=== PATIENT | male | born 1930 | race African-American/Black ===

== ENCOUNTER 2017-02-12 18:54 | Emergency (ER) | payer MEDICARE ==
[2017-02-12] MEDS ORDERED: Acetaminophen/Codeine 30-300mg Tablet ONE (21:31)
[2017-02-12] MEDS ORDERED: Methocarbamol 1 GM in Sodium Chloride 0.9% 250 ML 250 ML IVPB SCH (22:00)
[2017-02-12 22:01] LABS: #Basophils 0.1 thou/uL (0.0-0.2); #Eosinphils 0.2 thou/uL (0.0-0.7); #Lymphocytes 1.5 thou/uL (1.20-3.40); #Monocytes 0.4 thou/uL (0.11-0.59); #Neutrophils 3.3 thou/uL (1.40-6.50); %Basophils 0.9 % (0.0-1.0); %Eosinophils 4.6 % (0.0-10.0); %Monocytes 7.4 % (0.0-10.0); Hematocrit 36.2 % (42.0-52.0); Red Blood Cell (RBC) Count 3.58 mill/uL (4.70-6.10); White Blood Cell (WBC) Count 5.4 thou/uL (4.8-10.8)
[2017-02-12 22:21] LABS: ALT (SGPT) 19 U/L (8-55); AST (SGOT) 23 U/L (5-34); Alkaline Phosphatase 106 U/L (40-150); Anion Gap 18 mmol/L (10-20); BUN (Urea Nitrogen) 46 mg/dL (8.4-25.7); Bilirubin, Total 0.5 mg/dL (0.2-1.2); Calc. Creatinine Clearance 0 mL/min (70-130); Carbon Dioxide 27 mmol/L (23-31); Chloride 96 mmol/L (98-107); Estimated GFR-MDRD 7; Globulin 3.8 g/dL (2.4-3.5); Lipase 25 U/L (8-78); Protein, Total 7.5 g/dL (5.8-8.1)
== END 2017-02-12 23:08 | disposition home or self-care (01) ==
LOC: ERS 18:54
DX: M54.41 Lumbago with sciatica, right side (principal); M62.830 Muscle spasm of back; E78.5 Hyperlipidemia, unspecified; I12.9 Hypertensive chronic kidney disease with stage 1 through stage 4 chronic kidney disease, or unspecified chronic kidney disease; E11.22 Type 2 diabetes mellitus with diabetic chronic kidney disease; N18.9 Chronic kidney disease, unspecified; F17.220 Nicotine dependence, chewing tobacco, uncomplicated; Z79.82 Long term (current) use of aspirin; Z79.899 Other long term (current) drug therapy
CPT/HCPCS: 80053; 83690; 85025; 96365; J2800; J7050

== ENCOUNTER 2017-02-14 21:01 | Emergency (ER) | payer MEDICARE ==
[2017-02-14 22:51] LABS: #Basophils 0.1 thou/uL (0.0-0.2); #Eosinphils 0.2 thou/uL (0.0-0.7); #Lymphocytes 1.4 thou/uL (1.20-3.40); #Monocytes 0.5 thou/uL (0.11-0.59); #Neutrophils 3.6 thou/uL (1.40-6.50); %Eosinophils 3.9 % (0.0-10.0); %Lymphocytes 24.3 % (21.0-51.0); %Monocytes 8.8 % (0.0-10.0); Hematocrit 34.3 % (42.0-52.0); Mean Platelet Volume 7.1 fL (7.4-10.4); Red Blood Cell (RBC) Count 3.42 mill/uL (4.70-6.10); White Blood Cell (WBC) Count 5.9 thou/uL (4.8-10.8)
[2017-02-14 23:09] LABS: Lactic Acid - Sepsis 0.6 mmol/L (0.5-2.2)
[2017-02-14 23:13] LABS: ALT (SGPT) 16 U/L (8-55); AST (SGOT) 20 U/L (5-34); Alkaline Phosphatase 105 U/L (40-150); Anion Gap 16 mmol/L (10-20); BUN (Urea Nitrogen) 43 mg/dL (8.4-25.7); Bilirubin, Total 0.3 mg/dL (0.2-1.2); Calc. Creatinine Clearance 0 mL/min (70-130); Carbon Dioxide 29 mmol/L (23-31); Chloride 98 mmol/L (98-107); Estimated GFR-MDRD 7; Globulin 3.5 g/dL (2.4-3.5); Lipase 28 U/L (8-78)
[2017-02-14] MEDS ORDERED: Ondansetron HCl/PF 4 MG/2 ML Vial ONE (23:13)
--- NOTE | 2017-02-14 23:21 | CT ---
CT ABDOMEN AND PELVIS WITHOUT CONTRAST: 02/14/17 HISTORY: 86-year-old male with right sided lower back pain radiating to the right lower portion of the abdome n. Patient is on peritoneal dialysis. FINDINGS: Comparison is made with the exam of 09/24/14. Absence of oral and IV contrast reduces the sensitivity of the exam particularly for evaluation of t he solid organs and bowel. There are mild dependent changes in the lung bases. There are postop changes of right nephrectomy an d appendectomy. A peritoneal dialysis catheter is present. There is a small amount of free fluid in the pelvis. No calcified gallstones are seen. No free intraperitoneal air is identified. There is a tiny amount of air in the anterior abdominal wall to the right of midline at the level of the umbilicus. No calc treasure is seen in the left kidney, left ureter or the urinary bladder. No left sided hydroureteronephro sis is identified. The prostate is enlarged. There are cysts in the left kidney. There is sigmoid diverticulosis. There are vascular calcifications without evidence of aneurysmal d ilatation of the abdominal aorta. Degenerative changes are present in the spine, SI joints and hip j oints. 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 IMPRESSION: 1. Status post nephrectomy. 2. No evidence of urinary tract calculi or obstruction. 3. Left renal cyst. 4. Prostatic enlargement. 5. Small amount of free fluid in the pelvis likely dialysate. 6. Sigmoid diverticulosis. POS: [facility]
== END 2017-02-15 00:33 | disposition home or self-care (01) ==
LOC: ERS 21:01
DX: M54.5 Low back pain (principal); E78.5 Hyperlipidemia, unspecified; I10 Essential (primary) hypertension; F17.220 Nicotine dependence, chewing tobacco, uncomplicated; Z79.82 Long term (current) use of aspirin; Z79.891 Long term (current) use of opiate analgesic; Z79.899 Other long term (current) drug therapy
CPT/HCPCS: 36415; 74176; 80053; 83605; 83690; 85025; 96361; 96374; 96375; J2270; J2405

== ENCOUNTER 2017-09-22 15:55 | Emergency (ER) | payer MEDICARE ==
[2017-09-22 16:34] LABS: #Eosinphils 0.2 thou/uL (0.0-0.7); #Lymphocytes 1.7 thou/uL (1.20-3.40); #Monocytes 0.7 thou/uL (0.11-0.59); #Neutrophils 3.1 thou/uL (1.40-6.50); %Basophils 0.3 % (0.0-1.0); %Lymphocytes 29.8 % (21.0-51.0); %Monocytes 12.4 % (0.0-10.0); %Neutrophils 53.6 % (42.0-75.0); Hemoglobin 10.7 g/dL (14.0-18.0); Mean Corpuscular HGB CONC 33.3 g/dL (32.0-36.0); Mean Corpuscular Hemoglobin 33.1 pg (27.0-31.0); Mean Corpuscular Volume 99.5 fl (80.0-94.0); Mean Platelet Volume 6.5 fL (7.4-10.4); Platelet Count 187 thou/uL (130-400); RBC Distribution Width 13.3 % (11.5-14.5); Red Blood Cell (RBC) Count 3.22 mill/uL (4.70-6.10); White Blood Cell (WBC) Count 5.8 thou/uL (4.8-10.8)
[2017-09-22 16:53] LABS: ALT (SGPT) 16 U/L (8-55); AST (SGOT) 21 U/L (5-34); Albumin 3.3 g/dL (3.4-4.8); Alkaline Phosphatase 109 U/L (40-150); Anion Gap 11 mmol/L (10-20); BUN (Urea Nitrogen) 26 mg/dL (8.4-25.7); Bilirubin, Total 0.3 mg/dL (0.2-1.2); CK (CPK) 79 U/L (30-200); Calc. Creatinine Clearance 0 mL/min (70-130); Calcium 8.8 mg/dL (7.8-10.44); Carbon Dioxide 31 mmol/L (23-31); Chloride 100 mmol/L (98-107); Estimated GFR-MDRD 7; Glucose 86 mg/dL (83-110); Protein, Total 6.3 g/dL (5.8-8.1); Sodium 138 mmol/L (136-145)
[2017-09-22 16:58] LABS: CKMB 1.2 ng/mL (0-6.6); Troponin I 0.123 ng/mL (< 0.028)
--- NOTE | 2017-09-22 17:40 | RAD ---
HISTORY: Dizziness with chest pain. AP VIEW CHEST: 09/22/17 COMPARISON: Comparison made to previous exam from 12/24/16. AP view chest demonstrates ectasia and calcification of the aorta. Mild cardiomegaly is seen. No jackson dence of effusions, pneumonia or pneumothorax seen. IMPRESSION: Unremarkable AP view chest. POS: [facility]
[2017-09-22 19:58] LABS: Troponin I 0.144 ng/mL (< 0.028)
== END 2017-09-22 20:26 | disposition home or self-care (01) ==
LOC: ERS 15:55
DX: R51 Headache (principal); R74.8 Abnormal levels of other serum enzymes; E78.5 Hyperlipidemia, unspecified; I12.0 Hypertensive chronic kidney disease with stage 5 chronic kidney disease or end stage renal disease; N18.6 End stage renal disease; Z99.2 Dependence on renal dialysis; F17.220 Nicotine dependence, chewing tobacco, uncomplicated; Z79.82 Long term (current) use of aspirin; Z79.899 Other long term (current) drug therapy; Z85.528 Personal history of other malignant neoplasm of kidney
CPT/HCPCS: 36415; 36416; 71045; 80053; 82550; 82553; 84484; 85025; 93005

== ENCOUNTER 2017-10-31 23:55 | Inpatient (IN) | payer MEDICARE, MEDICAID ==
[2017-11-01 01:14] LABS: #Eosinphils 0.3 thou/uL (0.0-0.7); #Lymphocytes 1.2 thou/uL (1.20-3.40); #Monocytes 0.6 thou/uL (0.11-0.59); #Neutrophils 2.5 thou/uL (1.40-6.50); %Basophils 0.5 % (0.0-1.0); %Eosinophils 6.2 % (0.0-10.0); %Lymphocytes 26.1 % (21.0-51.0); %Monocytes 12.2 % (0.0-10.0); Hemoglobin 9.7 g/dL (14.0-18.0); Mean Corpuscular HGB CONC 34.3 g/dL (32.0-36.0); Mean Corpuscular Volume 96.3 fL (78.0-98.0); Mean Platelet Volume 6.8 fL (7.4-10.4); Platelet Count 177 thou/uL (130-400); RBC Distribution Width 12.8 % (11.5-14.5); Red Blood Cell (RBC) Count 2.94 mill/uL (4.70-6.10); White Blood Cell (WBC) Count 4.6 thou/uL (4.8-10.8)
[2017-11-01] MEDS ORDERED: Nitroglycerin 2% Ointment 1 INCH/1 GM Packet ONE (01:26)
[2017-11-01 01:40] LABS: CKMB 1.7 ng/mL (0-6.6); Troponin I 0.134 ng/mL (< 0.028)
[2017-11-01 01:48] LABS: ALT (SGPT) 16 U/L (8-55); AST (SGOT) 22 U/L (5-34); Albumin 3.3 g/dL (3.4-4.8); Alkaline Phosphatase 97 U/L (40-150); Anion Gap 14 mmol/L (10-20); BUN (Urea Nitrogen) 25 mg/dL (8.4-25.7); Bilirubin, Total 0.3 mg/dL (0.2-1.2); CK (CPK) 111 U/L (30-200); Calc. Creatinine Clearance 0 mL/min (70-130); Calcium 8.6 mg/dL (7.8-10.44); Carbon Dioxide 28 mmol/L (23-31); Chloride 97 mmol/L (98-107); Estimated GFR-MDRD 8; Globulin 3.1 g/dL (2.4-3.5); Glucose 90 mg/dL (83-110); Lipase 24 U/L (8-78); Potassium 3.8 mmol/L (3.5-5.1); Protein, Total 6.4 g/dL (5.8-8.1); Sodium 135 mmol/L (136-145)
[2017-11-01] MEDS ORDERED: Ondansetron ODT 4 MG TAB SL PRN (03:42)
[2017-11-01] MEDS ORDERED: Ondansetron HCl/PF 4 MG/2 ML Vial IVP PRN (03:42)
[2017-11-01 04:23] VITALS: BMI 21.0
[2017-11-01] MEDS ORDERED: rOPINIRole HCl 0.5 MG TAB PO SCH (07:00)
[2017-11-01] MEDS ORDERED: Aspirin 325 MG TAB PO SCH (08:00)
--- NOTE | 2017-11-01 09:09 | RAD ---
SINGLE VIEW OF THE CHEST: COMPARISON: 09/22/17. HISTORY: Chest pain that started an hour prior to arrival. FINDINGS: A single view of the chest shows a normal-size cardiomediastinal silhouette with atherosclerotic calc ifications in the aorta. Thee is no evidence of consolidation, mass, or pleural effusion. Degenerat madeline changes are seen in the spine. IMPRESSION: No evidence of acute cardiopulmonary disease. POS: [facility]
[2017-11-01] MEDS ORDERED: Epoetin (ESRD) 20,000 UNITS/ML SC SCH (10:30)
[2017-11-01 11:52] LABS: Troponin I 0.139 ng/mL (< 0.028)
--- NOTE | 2017-11-01 14:08 | CON ---
DATE OF CONSULTATION: 11/01/2017 REASON FOR CONSULTATION: Chest pain. PRIMARY MEDICARE SALES REPRESENTATIVE: Dr. Rodríguez. HISTORY OF PRESENT ILLNESS: Mr. Soto is an 87-year-old gentleman who is on peritoneal dialysis. H is main complaint is chest pain. History is a very vague. The patient is not able to describe the d uration. He does state the pain was worse with deep breath. He cannot tell me whether it is sharp o r dull. No associated symptoms present. His troponin was mildly elevated. When reviewing his previous hospitalizations, his troponin is at b aseline. He did have an angio performed less than 1 year ago with minimal coronary disease present. PAST MEDICAL HISTORY: End-stage renal disease, hypertension, mild CAD, DJD, hypertension, chronic an emia, renal cell cancer. PAST SURGICAL HISTORY: Appendectomy, nephrectomy. HOME MEDICATIONS: Include aspirin, Lipitor, clonidine, ranitidine, nifedipine, hydralazine, Requip, tramadol, Flomax, Sensipar. ALLERGIES: None. REVIEW OF SYSTEMS: Ten-point review of systems is reviewed and is as above, otherwise negative. PHYSICAL EXAMINATION: GENERAL: The patient is a pleasant male who is in no acute distress. The patient appears his stated age. VITAL SIGNS: Blood pressure 134/80, pulse 49, temperature 97.2. NEUROLOGIC: The patient is alert and oriented times 3 with no focal neurologic deficits. HEENT: Sclerae without icterus. Mouth has moist mucous membranes with normal pallor. NECK: No JVD. Carotid upstroke brisk. No bruits bilaterally. LUNGS: Clear to auscultation with unlabored respirations. BACK: No scoliosis or kyphosis. CARDIAC: Regular rate and rhythm with normal S1 and S2. No S3 or S4 noted. No significant rubs, mu rmurs, thrills, or gallops noted throughout the precordium. PMI is not displaced. There is no khang ternal heave. ABDOMEN: Soft, nontender, nondistended. No peritoneal signs present. No hepatosplenomegaly. No ab normal striae. EXTREMITIES: 2+ femoral and 2+ dorsalis pedis pulses. No cyanosis, clubbing, or edema. SKIN: No gross abnormalities. PERTINENT LABS: Sodium 135, potassium 3.8, chloride 97, creatinine 8.1. Troponin 0.134. IMPRESSION: 1. Atypical chest pain. 2. End-stage renal disease. 3. Elevated troponin. RECOMMENDATIONS: Mr. Soto's history is very difficult and vague. His symptoms though appear to be worse with deep breath. Given that he had an angiogram performed less than 1 year ago, would treat medically. He does not appear to be in any distress currently. The reason he was admitted was for a n elevated troponin that appears chronic. He is also complaining of hip pain. I did state that his primary team would arrange for management and treatment. Otherwise, I have no recommendations.
--- NOTE | 2017-11-01 15:10 | CON ---
DATE OF CONSULTATION: 11/01/2017 HISTORY OF PRESENT ILLNESS: Mr. Soto is an 87-year-old black male with ESRD, currently on maintena dee nocturnal peritoneal dialysis. He was admitted for chest pain. He is now here for further rule out. We are being consulted for maintenance peritoneal dialysis. This morning, his chest pain is im proved. REVIEW OF SYSTEMS: Complaining about the food, but no chest pain or shortness of breath, no nausea, no vomiting, no abdominal pain, no gross hematuria. No discoloration of the PD fluid, no nausea, no vomiting, no headache, no syncopal episode. Positive for increased forgetfulness. No diarrhea, no d ysuria, occasional joint pains, occasional back pain. No new skin rash. No sore throat. No fever o r chills. MEDICATIONS: The patient is currently aspirin 325 mg once a day, Zofran 4 mg sublingual q.6 p.r.n. HOME MEDICATIONS: Includes the following, calcium acetate 660 mg 1 tab t.i.d. with meals, aspirin 81 mg tab daily, ropinirole 0.5 mg at bedtime, KCl 20 mEq once a day, tamsulosin 0.4 mg once a day, fernanda rvastatin 20 mg tab at bedtime, vitamin D3 2000 international units every day, Sensipar 30 mg tab onc e a day, calcitriol 0.25 mcg every day, tramadol 50 mg p.r.n. PAST MEDICAL HISTORY: 1. Renal cancer - currently in remission. 2. End-stage renal disease - currently on nocturnal peritoneal dialysis. 3. Gout. 4. Hyperlipidemia. 5. Longstanding hypertension. PAST SURGICAL HISTORY: 1. Status post right nephrectomy for renal cancer. 2. Status post appendectomy. 3. Status post right leg surgery. 4. Status post PD catheter placement. 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 He is assisted by his daughter regarding the peritoneal dialysis. He dipped snuff for 50 year s. No drug abuse. Currently, no alcohol. Status post blood transfusion. ALLERGIES: None. TRAUMA: Status post right leg fracture. IMMUNIZATIONS: Up to date. HOSPITALIZATIONS: Please see past medical history. FAMILY HISTORY: No family history of ESRD. PHYSICAL EXAMINATION: VITAL SIGNS: Blood pressure is noted at 134/80, heart rate 49, respiratory rate 18, temperature 97.2 , pulse ox 98%. GENERAL: Awake, alert, comfortable, not in distress. SKIN: Adequate turgor. HEENT: Slightly pale conjunctivae, anicteric sclerae. NECK: No neck mass, no carotid bruits, no JVD. CHEST: No deformities. LUNGS: Clear breath sounds, no wheezing, no crackles. HEART: Normal sinus rhythm. No murmur, no gallops or rubs. ABDOMEN: Globular, soft, nontender, no masses. Positive for PD catheter. EXTREMITIES: No edema, no deformities. NEUROLOGIC: Awake. Mild tremors but no overt asterixis. Oriented to 3 spheres. Decreased memory. LABORATORY: Of 11/01/2017, white count 4.6, hemoglobin 9.7. Sodium 135, potassium 3.8, chloride 97, carbon dioxide 28, BUN 25, creatinine 8.14, glucose 90, AST 22, ALT 16, albumin 3.3, troponin I 0.12 . Chest x-ray shows no CHF, no infiltrates. ASSESSMENT AND PLAN: 1. Chronic anemia - Epogen 7500 units subcutaneously every week. 2. End-stage renal disease, stable. We will continue current CCPD regimen. We will schedule for 10 -hour peritoneal dialysis using 2 liters solutions alternating 1.5 and 2.5 PD solution. Dual time wi ll be about 1 hour and 13 minutes. 3. Chest pain, resolved. Rule out for myocardial infarction. 4. Hypoalbuminemia. Nepro 1 can b.i.d. Recheck base met and CBC in a.m.
[2017-11-01] MEDS ORDERED: hydrALAZINE 10 MG TAB PO PRN (16:41)
[2017-11-01] MEDS: Cinacalcet HCl 30 MG TAB PO SCH (17:52)
[2017-11-01] MEDS: Calcium Acetate 667 MG CAP PO SCH (17:52)
[2017-11-01] MEDS: rOPINIRole HCl 0.5 MG TAB PO SCH (21:12)
[2017-11-01] MEDS: Tamsulosin HCl 0.4 MG CAP PO SCH (21:12)
[2017-11-01] MEDS: Heparin 5,000 UNITS/ML VIAL SC SCH (21:12)
[2017-11-01] MEDS: Atorvastatin Calcium 20 MG TAB PO SCH (21:12)
[2017-11-02 04:17] LABS: #Eosinphils 0.3 thou/uL (0.0-0.7); #Lymphocytes 1.4 thou/uL (1.20-3.40); #Monocytes 0.6 thou/uL (0.11-0.59); #Neutrophils 2.5 thou/uL (1.40-6.50); %Basophils 0.3 % (0.0-1.0); %Eosinophils 5.7 % (0.0-10.0); %Lymphocytes 29.2 % (21.0-51.0); %Monocytes 12.9 % (0.0-10.0); %Neutrophils 51.9 % (42.0-75.0); Hemoglobin 9.6 g/dL (14.0-18.0); Mean Corpuscular Hemoglobin 33.1 pg (27.0-31.0); Mean Corpuscular Volume 97.3 fL (78.0-98.0); Platelet Count 170 thou/uL (130-400); RBC Distribution Width 13.1 % (11.5-14.5); White Blood Cell (WBC) Count 4.7 thou/uL (4.8-10.8)
[2017-11-02 04:34] LABS: Anion Gap 15 mmol/L (10-20); BUN (Urea Nitrogen) 30 mg/dL (8.4-25.7); Calc. Creatinine Clearance 7 mL/min (70-130); Calcium 8.4 mg/dL (7.8-10.44); Carbon Dioxide 27 mmol/L (23-31); Chloride 99 mmol/L (98-107); Estimated GFR-MDRD 7; Glucose 118 mg/dL (83-110); Potassium 3.5 mmol/L (3.5-5.1); Sodium 137 mmol/L (136-145)
--- NOTE | 2017-11-02 08:27 | HP ---
DATE OF ADMISSION: 11/01/2017 REASON FOR ADMISSION AND CHIEF COMPLAINT: Chest pain. HISTORY OF PRESENT ILLNESS: Mr. Soto is an 87-year-old -[place] male with past medical history of end-stage renal disease and hypertension, came in with chest pain and shortness of breath which started last night. The pain is in the retrosternal area, pressure-like, not sharp, nonradiating, not associated with any nausea or vomiting, associated with some shortness of breath. The patient came to emergency room for evaluation. By the time he came , the chest pain got resolved. In the ER, the patient was evaluated and found to have normal electrocardiogram and mildly elevated troponin I. In view of risk factors, the patient is being admitted to rule out myocardial infarction. The patient had a coronary angiogram done more than a year ago and it showed normal coronary arteries or minimal coronary artery disease. PAST MEDICAL HISTORY: 1. Hypertension. 2. End-stage renal disease, on peritoneal dialysis. 3. Hyperlipidemia. 4. Degenerative joint disease. 5. Restless leg syndrome. 6. Hypertensive heart disease. 7. Chronic anemia. 8. History of renal cell cancer. PAST SURGICAL HISTORY: 1. Status post appendectomy. 2. Status post nephrectomy for renal cell cancer. 3. Status post orthopedic surgery, right leg. CURRENT MEDICATIONS: The patient is on aspirin 81 mg daily; Lipitor 20 mg daily ; calcitriol 0.25 mcg daily on Thursday, Thursday, Thursday; vitamin D 2000 units daily; Sensipar 30 mg t.i.d.; hydralazine p.r.n.; nifedipine 90 mg daily, KCl 20 mEq daily, Requip 0.5 mg at bedtime, Flomax 0.4 at bedtime, tramadol 50 b.i.d. p.r.n. ALLERGIES: No known drug allergies. FAMILY HISTORY: Nothing of interest. SOCIAL HISTORY: The patient lives with family. No history of smoking. No history of alcohol intake. REVIEW OF SYSTEMS: Cardiovascular: Has chest pain with shortness of breath. Respiratory: No cough, fever. Gastrointestinal: No nausea, vomiting, or abdominal pain. Genitourinary: No dysuria or hematuria. Central nervous system: No headache, no dizziness. PHYSICAL EXAMINATION: GENERAL: The patient is alert, awake, oriented x3. VITAL SIGNS: Temperature 98, pulse 60, respirations 20, blood pressure 160/80. HEENT: Head is normocephalic, atraumatic. Pupils equal and reactive. Nasopharynx is pale and dry. Hard and soft palate, no lesions seen. SKIN: Skin turgor decreased. NECK: Supple. No JVD. LUNGS: Bilateral air entry present. No rales, no rhonchi. HEART: S1, S2 regular. ABDOMEN: Soft. No distention, no tenderness. Normal bowel sounds present. RECTAL: Deferred. CENTRAL NERVOUS SYSTEM: No focal deficit. EXTREMITIES: No edema. LABORATORY AND X-RAY FINDINGS: CBC shows WBC 4.6, hemoglobin 9.7, hematocrit 28 , platelets 177. Metabolic panel: Sodium 135, potassium 3.8, chloride 97, CO2 of 28, urea nitrogen 25, creatinine 8.1, glucose 90. CK-MB 1.1, troponin I 0.0134. Chest x-ray, no evidence of cardiopulmonary disease. EKG shows normal sinus rhythm; no acute ST-T wave changes seen; right bundle branch block, old. ASSESSMENT: 1. Chest pain, rule out myocardial infarction. 2. Hypertension. 3. End-stage renal disease, on peritoneal dialysis. 4. Hypertensive heart disease. 5. Restless leg syndrome. 6. Hyperlipidemia. 7. Degenerative joint disease. PLAN: 1. Vital signs q.4 hours. 2. Activity: As tolerated. 3. Allergies: NKDA. 4. Hep-Lock. 5. Diet: Renal and cardiac. 6. Troponin I q.8 hours x2. 7. Continue home medications. 8. Nephro consult. 9. CBC and base met in the morning. 10. Heparin subcu b.i.d. 11. Cardiology consult. ROBYND
--- NOTE | 2017-11-02 08:58 | PRG ---
DATE OF SERVICE: 11/02/2017 SUBJECTIVE: Mr. Soto is an 87-year-old black male with ESRD - on peritoneal dialysis and admitted for chest pain. He has been evaluated by Cardiology. The recommendation is medical treatment. No o ther complaints today. Denies any chest pain, shortness of breath. OBJECTIVE: VITAL SIGNS: Blood pressure is 134/67, heart rate 73, respiratory rate 18, temperature 99, pulse oxi metry 99% on room air. GENERAL: Awake, comfortable, not in distress. SKIN: Adequate turgor. HEENT: Slightly pale conjunctivae, anicteric sclerae. NECK: No neck mass, no carotid bruits, no JVD. CHEST: No deformities. LUNGS: Clear breath sounds. HEART: Normal sinus rhythm. No murmur, no gallops, no rubs. ABDOMEN: Globular, soft, nontender, no masses. EXTREMITIES: No edema, no deformities. Please note he has a PD catheter. MEDICATIONS: 11/02/2017 - Reviewed. LABORATORY: 11/02/2017 - White count 4.7, hemoglobin 9.6. Sodium 137, potassium 3.5, chloride 99, c arbon dioxide 27, BUN 30, creatinine 8.53, glucose 118, calcium 8.4. ASSESSMENT AND PLAN: 1. Chest pain, resolved. Recommendation by Cardiology is medical treatment. 2. End-stage renal disease, stable. Tolerating current peritoneal dialysis. He underwent peritonea l dialysis last night without any difficulty. Continue current CCPD regimen. Continues nocturnal pe ritoneal dialysis. Agree with current management. From a renal point of view, the patient can be di scharged. 3. Anemia, on weekly Epogen.
[2017-11-02] MEDS: Calcium Acetate 667 MG CAP PO SCH ×4 (09:16→17:32)
[2017-11-02] MEDS: Potassium Chloride 20 MEQ TAB PO SCH (09:17)
[2017-11-02] MEDS: NIFEdipine XL 90 MG TAB PO SCH (09:17)
[2017-11-02] MEDS: Aspirin 81 mg Enteric Coated Tablet PO SCH (09:17)
[2017-11-02] MEDS: Calcitriol 0.25 MCG CAP PO SCH (09:17)
[2017-11-02] MEDS: Cinacalcet HCl 30 MG TAB PO SCH ×4 (09:17→17:32)
[2017-11-02] MEDS: Heparin 5,000 UNITS/ML VIAL SC SCH ×2 (09:20→21:24)
--- NOTE | 2017-11-02 09:28 | PRG ---
DATE OF SERVICE: 11/02/2017 Mr. Soto is doing well today, no complaints. No significant chest pain or shortness of breath. PHYSICAL EXAMINATION: VITAL SIGNS: Blood pressure 134/67, pulse 70. LUNGS: Clear. CARDIAC: Normal S1, normal S2. ABDOMEN: Soft, nontender. EXTREMITIES: There is no edema. Reviewing the records, he does have some periods of 2:1 AV block early in the morning at 5:50 a.m., s omewhat looks like nonconducted PACs, some second degree type 1. He also has a bifascicular block on EKG. ASSESSMENT: 1. History of left ventricular hypertrophy. 2. No significant coronary disease. 3. Bifascicular block. 4. AV block as outlined above. PLAN: We will ask route delivery manager to see him today. At this point, it does not appear he needs a pacemaker, but I like the route delivery manager, Dr. Paz, to see the patient to make sure he does no t think any of this is second degree type 2 block.
--- NOTE | 2017-11-02 14:16 | CON ---
DATE OF CONSULTATION: 11/02/2017 REFERRING PHYSICIAN: Dr. Kia Lawson REASON FOR CONSULTATION: AV block as well as bifascicular block. HISTORY OF PRESENT ILLNESS: Mr. Soto is an 87-year-old male with past medical his tory including end-stage renal disease on dialysis, as well as hypertension and anemia of chronic dis ease. He presented to the emergency room on 11/01/2017 reporting chest pain and shortness of breath which had initiated the night before. He underwent an ischemic workup and was admitted. It was dete rmined not to be ischemic in origin. That being said, on telemetry, he has had some periods of AV bl ock which was initially labeled a second degree type 1 and some non-conducted PACs. He also has a hi story of a bifascicular block. We have been asked to evaluate by Cardiology for any additional AV bl ock or conduction problems as well as assess for potential need for a pacemaker. Today Mr. Soto is feeling well. He is eager to get home. He denies any heart racing, palpitation, chest pain, pressure, syncope, near syncope, stroke or stroke-like symptoms. He denies any shortnes s of breath. He has not been up ambulating in the room. He denies any nausea, vomiting, diarrhea, b lood in stool, blood in urine. He has not had any dizziness or passing out episodes. REVIEW OF SYSTEMS: Twelve point review of systems was conducted and is negative except that listed a michaelle in the HPI. PAST MEDICAL HISTORY: 1. Hypertension. 2. End-stage renal disease on peritoneal dialysis. 3. Hyperlipidemia. 4. Degenerative joint disease. 5. Restless leg syndrome. 6. Hypertensive heart disease. 7. Anemia of chronic disease. 8. History of renal cell cancer. PAST SURGICAL HISTORY: 1. Appendectomy. 2. Nephrectomy for renal cell cancer. 3. Orthopedic surgery on his right leg. HOME MEDICATIONS: Tramadol 50 mg p.o. b.i.d. as needed, Requip 0.5 mg p.o. at bedtime, Apresoline 10 mg p.o. p.r.n. high blood pressure, Flomax 0.4 mg p.o. at bedtime, K-Dur 20 mEq p.o. daily, nifedipi ne ER 90 mg p.o. daily, Sensipar 30 mg p.o. t.i.d. with meals, vitamin D 2000 units p.o. daily, calci um acetate 667 mg p.o. t.i.d. with meals, Rocaltrol 0.25 mcg p.o. Thursday, Thursday, Thursday, atorvas tatin 20 mg p.o. q.p.m., and Ecotrin 81 mg daily. ALLERGIES: No known allergies. FAMILY HISTORY: Negative for sudden cardiac and early onset coronary artery disease to the bes t of his knowledge. SOCIAL HISTORY: Lives with family. Multiple children. No history of smoking. No history of alcoho l or drug abuse. PHYSICAL EXAMINATION: VITAL SIGNS: Most recent vital signs are 98.7 degrees Fahrenheit, pulse 89, respirations 18, oxygen saturation is 98% on room air, blood pressure is 134/67. GENERAL: This is slightly underweight elderly male in no apparent distress. He is alert and oriente d. He does seem somewhat forgetful and is a fairly poor historian. HEENT: He is normocephalic, atraumatic, normocephalic. Pupils are equal, round, and reactive accomm odating to light. The sclerae are anicteric. His oral mucosa is moist and pink with adequate dentit ion. NECK: Supple without jugular venous distention. LUNGS: His lungs are clear to auscultation bilaterally without wheezes, crackles or rhonchi. Respir ations are even and unlabored with good bilateral excursion. HEART: His heart rate is regularly irregular with a crisp S1, S2 and the PMI is nondisplaced. ABDOMEN: Soft, nontender without palpable masses and positive bowel sounds noted throughout. Hepato jugular reflex is negative. NEUROLOGIC: Grossly intact and nonfocal. EXTREMITIES: Warm and dry to touch without clubbing, cyanosis or edema. Gait was not assessed. DATABASE: WBC 4.7, hemoglobin 9.6, hematocrit 28.2, platelet count is 170. Chemistry: Sodium 137, potassium 3.5, BUN is 30, creatinine is 8.53. Serial troponins were conducted and peaked at 0.139, d eemed indeterminate. Review of telemetry and EKGs reveals largely sinus rhythm with episodes of a second-degree type 2 AV block, also trifascicular block. No pauses. 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 3. End-stage renal disease on peritoneal dialysis. RECOMMENDATIONS: A long conversation was had with Mr. Soto as well as his daughter, Shannan, who w as on the phone during the consult. Given his Mobitz type 2 block, as well as his trifascicular bloc k, at this point, the recommendation is to go forward with a dual-chamber pacemaker. Ideally, this w ould be done during this hospitalization to prevent any syncopal episodes or further events from his advanced conduction disease. Risks with pacemaker insertion include pain, swelling and infection, as well as damage to the lung and heart. While these risks are fairly remote, they are real risks and were mentioned today. All questions were answered. At this point, the family would like to discuss amongst themselves and with Mr. Soto and give their decision once they have all spoken together. I f they decide to proceed with a pacemaker, we will keep him n.p.o. tomorrow and proceed in the aftern oon approximately at 1:00 p.m. Alternatively, they have asked if this can be done as an outpatient. Our recommendation is to do this before discharge; however, if they prefer we can do a followup appo intment and make outpatient arrangements as well. Thank you for allowing us to participate in the care of this patient.
[2017-11-02] MEDS: traMADol HCl 50 MG TAB PO PRN (14:43)
[2017-11-02] MEDS: Atorvastatin Calcium 20 MG TAB PO SCH (21:24)
[2017-11-02] MEDS: rOPINIRole HCl 0.5 MG TAB PO SCH (21:24)
[2017-11-02] MEDS: Tamsulosin HCl 0.4 MG CAP PO SCH (21:24)
--- NOTE | 2017-11-03 08:56 | PRG ---
DATE OF SERVICE: 11/03/2017 SUBJECTIVE: Mr. Soto is an 87-year-old black male with ESRD and currently on peritoneal dialysis a nd was evaluated by Cardiology due to his second degree AV block. He was also found to have a trifas cicular block. Dr. Paz from the EP Service has reevaluated the patient and his recommendation is fo r the patient to undergo a pacemaker placement. The patient has no new complaints today. He denies any chest pain, shortness of breath. He underwen t peritoneal dialysis without any difficulty last night. The only issue is the patient complained be ing full on 2 liter fill volume. For that reason, I changed the PD field volume to 1.5 liters. He h as no other complaints this morning. The patient denies any chest pain, shortness of breath. OBJECTIVE: VITAL SIGNS: Blood pressure 147/70, heart rate 74, respiratory rate 16, temperature 98.1, pulse ox i s 100%. GENERAL: Awake, alert, supine, comfortable, not in distress. SKIN: Adequate turgor. HEENT: Slightly pale conjunctivae, anicteric sclerae. NECK: No neck mass, no carotid bruits. No JVD. CHEST: No deformities. LUNGS: Clear breath sounds, no wheezing, no crackles. HEART: Normal sinus rhythm. No murmur, no gallops or rubs. ABDOMEN: Globular, soft, nontender, no masses. Positive for PD catheter. EXTREMITIES: No edema, no deformities. MEDICATIONS: 11/03/2017 - Reviewed. LABORATORY: 11/02/2017 - White count 4.7, hemoglobin 9.6. 11/02/2017 - Sodium 137, potassium 3.5, chloride 99, carbon dioxide 27, BUN 30, creatinine 8.53, gluc ose 118, calcium 8.4. Troponin I 0.139. ASSESSMENT AND PLAN: 1. End-stage renal disease, stable. We will continue current CCPD regimen. Fill volume has been de creased from 2 liters to 1.5 liters due to complaints of abdominal fullness. No other changes to be made today. 2. 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 Recommendation is t o place a pacemaker. The patient and the family has agreed with this. 3. Anemia, continuing weekly Epogen. Overall, I agree with current management. We will recheck a base met and CBC in a.m.
[2017-11-03] MEDS: Calcium Acetate 667 MG CAP PO SCH ×3 (09:46→17:11)
[2017-11-03] MEDS: Aspirin 81 mg Enteric Coated Tablet PO SCH (09:47)
[2017-11-03] MEDS: Heparin 5,000 UNITS/ML VIAL SC SCH ×3 (09:47→20:24)
[2017-11-03] MEDS: Cinacalcet HCl 30 MG TAB PO SCH ×3 (09:47→17:11)
[2017-11-03] MEDS: NIFEdipine XL 90 MG TAB PO SCH (09:54)
[2017-11-03] MEDS: Potassium Chloride 20 MEQ TAB PO SCH (09:54)
[2017-11-03] MEDS ORDERED: Lidocaine 1% (PF) 30 ML VIAL ONE ×2 (12:42→14:07)
[2017-11-03] MEDS ORDERED: CEFAZOLIN/Water 2 GM/20 ML SYRINGE ONE (12:43)
[2017-11-03] MEDS ORDERED: Fentanyl 100 MCG/2 ML VIAL ONE (12:44)
[2017-11-03] MEDS ORDERED: Midazolam HCl 2 mg/2 ml Vial ONE (12:44)
[2017-11-03] MEDS: traMADol HCl 50 MG TAB PO PRN (19:53)
[2017-11-03] MEDS: rOPINIRole HCl 0.5 MG TAB PO SCH (20:13)
[2017-11-03] MEDS: Atorvastatin Calcium 20 MG TAB PO SCH (20:13)
[2017-11-03] MEDS: Tamsulosin HCl 0.4 MG CAP PO SCH (20:13)
[2017-11-03] MEDS: Cephalexin 250 MG CAP PO SCH (20:14)
[2017-11-04 05:39] LABS: Anion Gap 12 mmol/L (10-20); BUN (Urea Nitrogen) 26 mg/dL (8.4-25.7); Calc. Creatinine Clearance 7 mL/min (70-130); Calcium 9.1 mg/dL (7.8-10.44); Carbon Dioxide 31 mmol/L (23-31); Chloride 99 mmol/L (98-107); Estimated GFR-MDRD 7; Glucose 101 mg/dL (83-110); Potassium 3.8 mmol/L (3.5-5.1); Sodium 138 mmol/L (136-145)
[2017-11-04 06:43] LABS: #Eosinphils 0.2 thou/uL (0.0-0.7); #Lymphocytes 1.2 thou/uL (1.20-3.40); #Monocytes 0.6 thou/uL (0.11-0.59); #Neutrophils 3.8 thou/uL (1.40-6.50); %Basophils 0.4 % (0.0-1.0); %Eosinophils 2.8 % (0.0-10.0); %Lymphocytes 20.1 % (21.0-51.0); %Monocytes 10.8 % (0.0-10.0); Hemoglobin 10.4 g/dL (14.0-18.0); Mean Corpuscular HGB CONC 31.1 g/dL (32.0-36.0); Mean Corpuscular Hemoglobin 30.5 pg (27.0-31.0); Mean Corpuscular Volume 98.1 fL (78.0-98.0); Mean Platelet Volume 6.8 fL (7.4-10.4); Platelet Count 189 thou/uL (130-400); RBC Distribution Width 13.6 % (11.5-14.5); Red Blood Cell (RBC) Count 3.42 mill/uL (4.70-6.10); White Blood Cell (WBC) Count 5.8 thou/uL (4.8-10.8)
--- NOTE | 2017-11-04 08:33 | PRG ---
DATE OF SERVICE: 11/04/2017 SUBJECTIVE: Mr. Soto is an 87-year-old black male with ESRD - on peritoneal dialysis and recently underwent a pacemaker placement. This morning he is feeling better. He denies any chest pain or alla rtness of breath. Please note the recent PD regimen was changed to a 1.5 liter fill volume. He is f eeling better with this. PHYSICAL EXAMINATION: VITAL SIGNS: Blood pressure 136/72, heart rate 77, respiratory rate 18, temperature 98.1, pulse ox 9 7%. GENERAL: Noted to be awake, alert, comfortable, not in overt distress. SKIN: Adequate turgor. HEENT: He has pinkish conjunctivae, anicteric sclerae. NECK: No neck mass, no carotid bruits, no JVD. CHEST: No deformities. LUNGS: Clear breath sounds. No wheezing, no crackles. HEART: Normal sinus rhythm. No murmur, no gallops or rubs. ABDOMEN: Globular, soft, nontender, no masses. EXTREMITIES: No edema, no deformities. MEDICATIONS: 11/04/2017 - Reviewed. LABORATORY: 11/04/2017 - White count 5.8, hemoglobin 10.4, sodium 138, potassium 3.8, chloride 99, c arbon dioxide 31, BUN 26, creatinine 8.45, glucose 101, calcium 9.1. ASSESSMENT AND PLAN: 1. End-stage renal disease, stable. Tolerating current peritoneal dialysis regimen. No changes marv l be made with the current peritoneal dialysis. 2. Second degree AV block - the patient followed by Cardiology. Pacemaker has been placed. 3. Anemia, stable, continuing weekly Epogen. I agree with current management. If the patient is discharged today, will follow up at the dialysis unit - outpatient.
--- NOTE | 2017-11-04 09:06 | PRG ---
DATE OF SERVICE: 11/04/2017 SUBJECTIVE: Mr. Soto seems to be doing well one day after his pacemaker implantation. OBJECTIVE DATA: VITAL SIGNS: Blood pressure is 136/70, heart rate is 77, respirations 18, temperature 98.1 degrees F ahrenheit. GENERAL: Alert and oriented man in no apparent distress. NECK: Supple. Jugular veins not distended. CHEST: Coarse without crackles. CARDIOVASCULAR: Heart sounds are regular rate and rhythm. No murmur or gallop. ABDOMEN: Benign. Bowel sounds positive. EXTREMITIES: No edema, clubbing or cyanosis. DATABASE: The telemetry strips reveal sinus rhythm, occasional pacing in the ventricles. LABORATORY DATA: White count 5.8, hemoglobin 10.4, platelet count is 189. Sodium 138, potassium 3.8 , BUN is 26, creatinine 8.45. Troponin levels are 0.139. ASSESSMENT AND PLAN: 1. Mr. 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 Hence, we p laced a prophylactic pacemaker. He seems to be doing well one day after the implant. He has no sign ificant hematoma. Chest x-ray shows no pneumothorax. PLAN: Continue routine postoperative care. Antibiotics for a week and a wound check in about 10-14 days.
--- NOTE | 2017-11-04 09:32 | RAD ---
PORTABLE CHEST: INDICATION: Post pacemaker placement. COMPARISON: 11/01/17. FINDINGS: A dual-lead pacemaker device is in place via the left subclavian vein. The leads appear in adequate position. Lung augustin are clear. Heart and mediastinum unremarkable. NO pneumothorax or other acut e process. IMPRESSION: No acute finding. POS: [facility]
[2017-11-04] MEDS: NIFEdipine XL 90 MG TAB PO SCH (10:01)
[2017-11-04] MEDS: Cinacalcet HCl 30 MG TAB PO SCH (10:01)
[2017-11-04] MEDS: Calcium Acetate 667 MG CAP PO SCH (10:02)
[2017-11-04] MEDS: Cephalexin 250 MG CAP PO SCH (10:02)
[2017-11-04] MEDS: Potassium Chloride 20 MEQ TAB PO SCH (10:02)
[2017-11-04] MEDS: Aspirin 81 mg Enteric Coated Tablet PO SCH (10:02)
[2017-11-04] MEDS: Calcitriol 0.25 MCG CAP PO SCH (10:03)
[2017-11-04] MEDS: Heparin 5,000 UNITS/ML VIAL SC SCH (10:04)
[2017-11-04 12:51] VITALS: BP 134/71; TEMP 97.9
== END 2017-11-04 12:45 | disposition home or self-care (01) | DRG 242 ==
LOC: ERS 23:55 → 2NO 11-01 02:00
PROVIDERS: ADMIT Internal Medicine; ATTEND Internal Medicine
PROC: 0JH606Z Insertion of Pacemaker, Dual Chamber into Chest Subcutaneous Tissue and Fascia, Open Approach (ICD-10-PCS; principal; 2017-11-03)
PROC: 02H63JZ Insertion of Pacemaker Lead into Right Atrium, Percutaneous Approach (ICD-10-PCS; 2017-11-03)
PROC: 02HK3JZ Insertion of Pacemaker Lead into Right Ventricle, Percutaneous Approach (ICD-10-PCS; 2017-11-03)
DX: I44.1 Atrioventricular block, second degree (principal); N18.6 End stage renal disease; I13.11 Hypertensive heart and chronic kidney disease without heart failure, with stage 5 chronic kidney disease, or end stage renal disease; I45.3 Trifascicular block; D63.1 Anemia in chronic kidney disease; I25.10 Atherosclerotic heart disease of native coronary artery without angina pectoris; Z99.2 Dependence on renal dialysis; E78.00 Pure hypercholesterolemia, unspecified; M10.9 Gout, unspecified; Z90.5 Acquired absence of kidney; G25.81 Restless legs syndrome; M19.90 Unspecified osteoarthritis, unspecified site; Z85.528 Personal history of other malignant neoplasm of kidney; Z79.82 Long term (current) use of aspirin; Z79.899 Other long term (current) drug therapy
CPT/HCPCS: 33208; 36005; 36415; 71045; 75820; 80048; 80053; 82553; 83690; 83880; 84484; 85025; 90945; 93005; 99152; 99153; 99406; A4216; C1785; C1898; G0257; J1644; J2001; J2250; J3010; J3490; Q4081

== ENCOUNTER 2018-12-29 04:52 | Observation (INO) | payer MEDICARE, MEDICAID ==
[2018-12-29 05:32] LABS: %Basophils 0.4 % (0.0-1.0); %Eosinophils 2.8 % (0.0-10.0); %Lymphocytes 38.6 % (21.0-51.0); %Monocytes 10.8 % (0.0-10.0); %Neutrophils 47.4 % (42.0-75.0); Hemoglobin 10.7 g/dL (14.0-18.0); Mean Corpuscular HGB CONC 34.1 g/dL (32.0-36.0); Mean Corpuscular Volume 96.6 fL (78.0-98.0); Platelet Count 174 thou/uL (130-400); RBC Distribution Width 13.3 % (11.5-14.5); Red Blood Cell (RBC) Count 3.24 mill/uL (4.70-6.10); White Blood Cell (WBC) Count 4.5 thou/uL (4.8-10.8)
[2018-12-29 05:33] LABS: #Eosinphils 0.1 thou/uL (0.0-0.7); #Lymphocytes 1.7 thou/uL (1.20-3.40); #Monocytes 0.5 thou/uL (0.11-0.59); #Neutrophils 2.1 thou/uL (1.40-6.50)
[2018-12-29 05:55] LABS: ALT (SGPT) 20 U/L (8-55); AST (SGOT) 27 U/L (5-34); Albumin 3.6 g/dL (3.4-4.8); Alkaline Phosphatase 103 U/L (40-150); Anion Gap 14 mmol/L (10-20); BUN (Urea Nitrogen) 31 mg/dL (8.4-25.7); Bilirubin, Total 0.4 mg/dL (0.2-1.2); Calc. Creatinine Clearance 0 mL/min (70-130); Calcium 9.9 mg/dL (7.8-10.44); Carbon Dioxide 30 mmol/L (23-31); Chloride 97 mmol/L (98-107); Estimated GFR-MDRD 6; Globulin 2.7 g/dL (2.4-3.5); Glucose 91 mg/dL (83-110); Potassium 3.2 mmol/L (3.5-5.1); Protein, Total 6.3 g/dL (5.8-8.1); Sodium 138 mmol/L (136-145)
[2018-12-29 06:14] LABS: CKMB 1.9 ng/mL (0-6.6)
[2018-12-29] MEDS ORDERED: Aspirin Chewable 81 MG TAB ONE (07:23)
--- NOTE | 2018-12-29 08:05 | RAD ---
RADIOGRAPH CHEST 1 VIEW: DATE: 12/29/2018 HISTORY: 88-year-old male with chest pain FINDINGS: The thoracic aorta is tortuous and ectatic. There is no evidence of airspace density, pulmonary edema , or pneumothorax. The lateral costophrenic angles are not effaced. No cardiomegaly. Dual lead left subclavian pacemaker. The only interval change since 11/04/2017 is a new triangular density at the rig ht lower lung zone consistent with either subsegmental atelectasis or scar. IMPRESSION: 1) No acute pulmonary findings. 2) ectasia of thoracic aorta. 3) pacemaker.
[2018-12-29 09:20] LABS: Troponin I 0.228 ng/mL (< 0.028)
[2018-12-29] MEDS ORDERED: Ondansetron ODT 4 MG TAB PO PRN (10:05)
[2018-12-29] MEDS ORDERED: Acetaminophen 325 MG TAB PO PRN (10:05)
[2018-12-29] MEDS ORDERED: Ondansetron PF 4 MG/2 ML Vial IVP PRN (10:05)
[2018-12-29 10:21] VITALS: BMI 20.2
[2018-12-29 12:42] LABS: Troponin I 0.261 ng/mL (< 0.028)
[2018-12-29] MEDS ORDERED: Ketorolac Tromethamine 30 MG/ML VIAL IVP SCH (18:00)
[2018-12-29] MEDS ORDERED: Potassium Chloride 20 MEQ TAB PO SCH (18:00)
[2018-12-29] MEDS: hydrALAZINE 25 MG TAB PO SCH (19:59)
[2018-12-29] MEDS: Metoprolol Tartrate 25 MG TAB PO SCH (20:00)
[2018-12-29] MEDS: traMADol HCl 50 MG TAB PO SCH (20:00)
[2018-12-29] MEDS ORDERED: Famotidine 20 MG TAB PO SCH (21:00)
[2018-12-29] MEDS ORDERED: Metoprolol Tartrate 25 MG TAB PO SCH (21:00)
[2018-12-29] MEDS ORDERED: rOPINIRole HCl 0.5 MG TAB PO SCH (21:00)
[2018-12-29] MEDS ORDERED: Tamsulosin HCl 0.4 MG CAP PO SCH (21:00)
--- NOTE | 2018-12-29 23:54 | HP ---
CHIEF COMPLAINT: Chest pain. HISTORY OF PRESENT ILLNESS: Mr. Soto is an 88-year-old male with past medical history of end-stage renal disease, on peritoneal dialysis, hypertension, mild coronary artery disease, and developed chest pain last night. The patient states it began suddenly in the retrosternal area, sharp pain, radiates to the left shoulder, not associated with any diaphoresis or nausea or shortness of breath. He has removed 2600 mL of fluid during dialysis prior to EMS arrival. Currently, the pain is still there mainly in the shoulder part and neck area. The patient was evaluated in the ER and given aspirin and admitted for further evaluation and management. PAST MEDICAL HISTORY: 1. End-stage renal disease, on peritoneal dialysis. 2. Hypertension. 3. Hyperlipidemia. 4. Restless legs syndrome. 5. Hypertensive heart disease. 6. Chronic anemia. 7. History of renal cell cancer. 8. Mild coronary artery disease. PAST SURGICAL HISTORY: 1. Status post appendectomy. 2. Status post nephrectomy for renal cell cancer. 3. Status post orthopedic surgery, right leg. CURRENT MEDICATIONS: The patient is on, 1. Hydralazine 50 mg b.i.d. 2. Flomax 0.4 mg daily. 3. Aspirin 81 mg daily. 4. Metoprolol 50 mg b.i.d. 5. Tramadol 50 b.i.d. 6. Requip 0.5 mg at bedtime. 7. Sensipar 30 mg daily. 8. Vitamin D 2000 units daily. 9. Ranitidine 150 b.i.d. FAMILY HISTORY: Nothing contributory. SOCIAL HISTORY: The patient lives with family. No history of smoking. No history of alcohol. REVIEW OF SYSTEMS: Unremarkable except for chest pain. PHYSICAL EXAMINATION: GENERAL: On examination, the patient is alert, awake, and oriented x3. VITAL SIGNS: Temperature 98, pulse 80, respirations 19, and blood pressure 178/100. HEENT: Head is normocephalic and atraumatic. Pupils are equal and reactive. Nasopharynx is pale and dry. Hard and soft palate. No lesions. SKIN: Turgor decreased. NECK: Supple. No JVD. LUNGS: Bilateral air entry present. No rales. No rhonchi. HEART: S1 and S2 regular. ABDOMEN: Soft. No distention. No tenderness. Normal bowel sounds. RECTAL: Deferred. CENTRAL NERVOUS SYSTEM: No focal deficits. LABORATORY DATA: CBC shows WBC 4.5, hemoglobin 10.7, hematocrit 31, and platelets 174. Metabolic panel; sodium 138, potassium 3.8, chloride 97, CO2 13, BUN 31, creatinine 0.4, glucose 91. Troponin I 0.238. Chest x-ray negative, shows pacemaker in place. EKG shows electronic pacemaker rhythm. ASSESSMENT: 1. Chest pain, rule out myocardial infarction. 2. Hypertension. 3. Hyperlipidemia. 4. Mild coronary artery disease. 5. Restless legs syndrome. 6. End-stage renal disease, on peritoneal dialysis. PLAN: 1. Vital signs q.4 hours. 2. Activity as tolerated. 3. Allergies, NKDA. 4. Hep-Lock. 5. Troponin I q.6 hours x2. 6. Continue home medications. 7. Cardiology consult. 8. Nephrology consult. Job ID: [id number]
--- NOTE | 2018-12-30 00:30 | CON ---
DATE OF CONSULTATION: REASON FOR CONSULTATION: Left shoulder and chest pain. HISTORY OF PRESENT ILLNESS: Mr. Soto is a very pleasant gentleman, 88 years of age, with end-stage renal disease. He has a long history of chest pain as well. Recently, he has been complaining of pain in the left side of his neck, left shoulder. He says it has been present for days, but maybe even weeks or months. He had a long history of musculoskeletal chest pain, underwent cardiac catheterization in 2017. He had [id number] plaque in the coronaries. PAST HISTORY: 1. End-stage renal disease, on peritoneal dialysis. 2. Hypertension. 3. He had a pacemaker inserted for type 2 AV block, second degree. MEDICATIONS: Include; 1. Hydralazine. 2. Metoprolol. 3. Tamsulosin. 4. Aspirin. REVIEW OF SYSTEMS: CONSTITUTIONAL: Positive for weakness and fatigue. VISION: No changes. HEARING: No changes. PULMONARY: No cough or wheezing. GASTROINTESTINAL: No nausea, vomiting, or diarrhea. SKIN: No rashes. NEUROLOGIC: No unilateral weakness or numbness. PSYCHIATRIC: No unusual depression or anxiety. HEMATOLOGIC: No unusual bruising. PHYSICAL EXAMINATION: GENERAL: This is a pleasant elderly gentleman, somewhat frail-appearing. VITAL SIGNS: Blood pressure as high as 186/87, pulse 70, regular. LUNGS: Clear. CARDIAC: Normal S1, normal S2. ABDOMEN: Soft, nontender. EXTREMITIES: No clubbing or cyanosis or edema. LABORATORY DATA: EKG reveals appropriate atrial and ventricular pacing. The other past history. ASSESSMENT: 1. Musculoskeletal pain. 2. Hypertension. 3. End-stage renal disease. 4. Previous pacemaker. PLAN: 1. Echocardiogram to be done tomorrow. 2. We will increase metoprolol. 3. Add amlodipine. 4. Probably home tomorrow if doing well. Job ID: [id number]
[2018-12-30] MEDS ORDERED: Cinacalcet HCl 30 MG TAB PO SCH (07:30)
[2018-12-30] MEDS: hydrALAZINE 25 MG TAB PO SCH (08:26)
[2018-12-30] MEDS: Metoprolol Tartrate 25 MG TAB PO SCH (08:26)
[2018-12-30] MEDS: traMADol HCl 50 MG TAB PO SCH (08:28)
[2018-12-30] MEDS ORDERED: EPOETIN ALFA-EPBX (ESRD) 4,000 UNIT/ML VIAL SC SCH (08:45)
[2018-12-30] MEDS ORDERED: Amlodipine 5 MG TAB PO SCH (09:00)
[2018-12-30] MEDS ORDERED: Aspirin 81 mg Enteric Coated Tablet PO SCH (09:00)
--- NOTE | 2018-12-30 10:33 | CON ---
DATE OF CONSULTATION: SERVICE: Renal Medicine. HISTORY OF PRESENT ILLNESS: Mr. Soto is an 88-year-old black male with ESRD, on peritoneal dialysis, and admitted for chest pain. On close questioning, pain was more on the left shoulder joint with radiation to the left upper arm. He is completely asymptomatic this morning. He denies any chest pain or shortness of breath. We are following up this patient for his peritoneal dialysis. He underwent peritoneal dialysis yesterday without any difficulty. We removed about 600 mL of fluid with the said dialysis. REVIEW OF SYSTEMS: Currently, no chest pain. Occasional joint pains. No nausea. No vomiting. No diarrhea. No abdominal pain. No headache. No diplopia. No sore throat. No syncopal episode. No gross hematuria. No hematochezia. No melena. No hematemesis. MEDICATIONS: Currently on; 1. Norvasc 5 mg daily. 2. Ecotrin 81 mg daily. 3. Vitamin D3 of 2000 international units daily. 4. Sensipar 30 mg daily. 5. Pepcid 20 mg q.p.m. 6. Lopressor 50 mg p.o. b.i.d. 7. Ropinirole 0.5 mg at bedtime. 8. Flomax 0.4 mg at bedtime. 9. Tramadol 50 mg p.o. b.i.d. PAST MEDICAL HISTORY: Includes the following; 1. ESRD, currently on CCPD. 2. Renal cancer, currently in remission. 3. Gout. 4. Hyperlipidemia. 5. Longstanding hypertension. PAST SURGICAL HISTORY: Status post right nephrectomy for renal cancer, status post appendectomy, status post right leg surgery, and status post PD catheter placement. The patient is status post pacemaker placement. SOCIAL HISTORY: The patient lives in [place]. He has 11 children. Lives alone. Single. He has good family support. 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 He dips snuff for 50 years. No IV drug abuse. Currently, no alcohol. Status post blood transfusion. ALLERGIES: NONE. TRAUMA: Status post right leg fracture. IMMUNIZATIONS: Up-to-date. HOSPITALIZATIONS: Please see past medical history. FAMILY HISTORY: No family history of ESRD. PHYSICAL EXAMINATION: VITAL SIGNS: Blood pressure is 146/70, heart rate 68, respiratory rate 14, temperature 98, and pulse ox 97%. GENERAL: Noted to be awake, alert, comfortable, not in distress. SKIN: Adequate turgor. HEENT: Slightly pale conjunctivae. Anicteric sclerae. NECK: No neck mass. No carotid bruits. No JVD. CHEST: No deformities. LUNGS: Clear breath sounds. HEART: Normal sinus rhythm. No murmur. No gallops. No rubs. ABDOMEN: Globular, soft, and nontender. No masses. Please note, he has a PD catheter. EXTREMITIES: No edema. No deformities. LABORATORY DATA: Laboratories of December 29, 2018; sodium 138, potassium 3.2, chloride 97, carbon dioxide 30, BUN 31, creatinine 9.44, glucose 91, AST 27, and ALT 20. Troponin I #1 of 0.238, #2 of 0.228, #3 of 0.261 and CK-MB is noted at 1.9. On December 29, 2018, chest x-ray, no acute pulmonary findings. ASSESSMENT AND PLAN: 1. Chest pain/degenerative joint disease - the patient is being ruled out for myocardial infarction. He has been evaluated by Cardiology. Recommendation is to increase his metoprolol and add amlodipine to his medications. Most likely, he is to go home. 2. End-stage renal disease, stable. The patient is tolerating current CCPD regimen. Continue peritoneal dialysis. Fluid removal only as tolerated. No changes will be made with his current peritoneal dialysis. Please note, his last Kt/V suggests he is adequately dialyzed with the current peritoneal dialysis regimen. 3. Borderline anemia. We will start Epogen. Agree with current management for possible discharge today. Job ID: [id number]
[2018-12-30 15:29] VITALS: BP 146/70; TEMP 98.3
[2018-12-30] MEDS ORDERED: Famotidine 20 MG TAB PO SCH (21:00)
--- NOTE | 2019-01-01 14:32 | EKG ---
Test Reason : Blood Pressure : / mmHG Vent. Rate : 076 BPM Atrial Rate : 073 BPM P-R Int : 000 ms QRS Dur : 174 ms QT Int : 464 ms P-R-T Axes : 000 -76 096 degrees QTc Int : 522 ms AV sequential or dual chamber electronic pacemaker Confirmed by ANUJA VAZQUEZ ([id number]), film editor HALIE GOMEZ ([id number]) on 01/01/2019 2:31:53 PM Referred By: Confirmed By:ANUJA VAZQUEZ
== END 2018-12-30 18:35 | disposition home or self-care (01) ==
LOC: ERS 04:52 → 2SW 07:56
PROVIDERS: ADMIT Internal Medicine; ATTEND Internal Medicine
DX: R07.2 Precordial pain (principal); I12.0 Hypertensive chronic kidney disease with stage 5 chronic kidney disease or end stage renal disease; N18.6 End stage renal disease; D63.1 Anemia in chronic kidney disease; E78.5 Hyperlipidemia, unspecified; G25.81 Restless legs syndrome; I25.10 Atherosclerotic heart disease of native coronary artery without angina pectoris; M10.9 Gout, unspecified; C64.9 Malignant neoplasm of unspecified kidney, except renal pelvis; F17.290 Nicotine dependence, other tobacco product, uncomplicated; Z79.82 Long term (current) use of aspirin; Z79.899 Other long term (current) drug therapy; Z99.2 Dependence on renal dialysis
CPT/HCPCS: 71045; 80053; 82553; 84484 ×2; 85025; 93005; 93306; 96372; 96374; 99285; G0378 ×3; Q5105; 36415; 90945; G0257; J1885

== ENCOUNTER 2019-02-03 14:23 | Outpatient (CLI) | payer MEDICARE, MEDICAID ==
--- NOTE | 2019-02-03 15:47 | RAD ---
LEFT HIP TWO VIEWS: 02/03/19 HISTORY: Hip pain. There is marked arthritic changes of the hip. There is marked joint space narrowing centrally. There is spur formation along the femoral head and neck junction. The ones appear demineralized. IMPRESSION: Marked joint space narrowing of the left hip. POS: [facility]
== END 2019-02-03 14:24 | disposition home or self-care (01) ==
LOC: RAD-FRANK 14:23
PROVIDERS: ATTEND Internal Medicine
DX: M25.552 Pain in left hip (principal)

== ENCOUNTER 2019-08-22 09:31 | Observation (INO) | payer MEDICARE, MEDICAID ==
--- NOTE | 2019-08-22 10:24 | RAD ---
CHEST 1 VIEW: Date: 08/22/2019 HISTORY: Chest pain. COMPARISON: Radiograph dated 12/29/2018. FINDINGS: Heart size upper limits of normal. Dual lead pacer is similar. There are linear markings in the right lung base which can be seen on prior CT dating back to 2017 alexander ggesting linear scar. Pulmonary arteries are dilated. IMPRESSION: Chronic findings. No acute intrathoracic abnormality. POS: [facility]
[2019-08-22 10:46] LABS: ALT (SGPT) 21 U/L (8-55); AST (SGOT) 31 U/L (5-34); Albumin 3.3 g/dL (3.4-4.8); Alkaline Phosphatase 85 U/L (40-110); Anion Gap 16 mmol/L (10-20); BUN (Urea Nitrogen) 25 mg/dL (8.4-25.7); Bilirubin, Total 0.5 mg/dL (0.2-1.2); CK (CPK) 134 U/L (30-200); Calc. Creatinine Clearance 0 mL/min (70-130); Calcium 8.3 mg/dL (7.8-10.44); Carbon Dioxide 26 mmol/L (23-31); Chloride 99 mmol/L (98-107); Estimated GFR-MDRD 7; Globulin 3.5 g/dL (2.4-3.5); Glucose 93 mg/dL (83-110); Potassium 4.1 mmol/L (3.5-5.1); Protein, Total 6.8 g/dL (5.8-8.1); Sodium 137 mmol/L (136-145)
[2019-08-22 10:52] LABS: CKMB 1.4 ng/mL (0-6.6)
[2019-08-22 14:44] LABS: Troponin I 0.131 ng/mL (< 0.028)
[2019-08-22 14:47] LABS: #Eosinphils 0.1 thou/uL (0.0-0.7); #Lymphocytes 1.8 thou/uL (1.20-3.40); #Monocytes 0.5 thou/uL (0.11-0.59); #Neutrophils 2.5 thou/uL (1.40-6.50); %Basophils 0.7 % (0.0-1.0); %Neutrophils 51.3 % (42.0-75.0); Hemoglobin 10.6 g/dL (14.0-18.0); Mean Corpuscular HGB CONC 33.5 g/dL (32.0-36.0); Mean Corpuscular Hemoglobin 32.8 pg (27.0-31.0); Mean Platelet Volume 8.5 fL (7.4-10.4); Platelet Count 132 thou/uL (130-400); RBC Distribution Width 13.1 % (11.5-14.5); Red Blood Cell (RBC) Count 3.24 mill/uL (4.70-6.10); White Blood Cell (WBC) Count 4.9 thou/uL (4.8-10.8)
[2019-08-22] MEDS ORDERED: Nitroglycerin 0.4 MG TAB (25 Tab Bottle) PO PRN (15:16)
[2019-08-22] MEDS ORDERED: Acetaminophen 325 MG TAB PO PRN (15:16)
[2019-08-22] MEDS ORDERED: traMADol HCl 50 MG TAB PO PRN (15:16)
[2019-08-22] MEDS ORDERED: Bisacodyl 10 MG SUPP PR PRN (15:16)
[2019-08-22] MEDS ORDERED: Senokot S 8.6-50 MG TAB PO PRN (15:16)
[2019-08-22] MEDS ORDERED: Calcium Carbonate 500 MG ChewTAB PO PRN (15:16)
[2019-08-22] MEDS ORDERED: Guaifenesin DM 100-10/5 ML UDCUP PO PRN (15:16)
[2019-08-22] MEDS ORDERED: Ondansetron PF 4 MG/2 ML Vial IVP PRN (15:16)
[2019-08-22 16:05] VITALS: BMI 20.6
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
[2019-08-22] MEDS ORDERED: EPOETIN ALFA-EPBX (ESRD) 4,000 UNIT/ML VIAL SC SCH (17:00)
[2019-08-22] MEDS: Metoprolol Tartrate 25 MG TAB PO SCH (18:44)
[2019-08-22] MEDS: hydrALAZINE 10 MG TAB PO SCH (18:44)
--- NOTE | 2019-08-22 20:33 | CON ---
DATE OF CONSULTATION: HISTORY OF PRESENT ILLNESS: Charles is an 88-year-old black male with ESRD, on peritoneal dialysis, was admitted for chest pain. According to the patient, he has been having chest pain on and off. It sometimes is aggravated by deep breathing. He was given nitroglycerin and aspirin. This resolved the chest pain. We are being consulted for his maintenance peritoneal dialysis. REVIEW OF SYSTEMS: Currently, no chest pain. No shortness of breath. No nausea. No vomiting. No abdominal pain. No gross hematuria. No dysuria. No urinary frequency. No productive cough. No fever or chills. No syncopal episode. Appetite decreased. Energy level is fair. MEDICATIONS: 1. Sensipar 30 mg tablet once a day. 2. Metoprolol tartrate 50 mg b.i.d. 3. Calcitriol 0.25 mcg daily. 4. Hydralazine 50 mg tablet b.i.d. 5. Amlodipine 5 mg at bedtime. 6. Tamsulosin 0.4 mg daily. 7. Vitamin D3 2000 international units daily. 8. Famotidine 20 mg tablet once a day. PAST MEDICAL HISTORY: 1. The patient has history of hypertension. 2. ESRD, currently on maintenance CCPD. 3. Renal cancer, in remission. 4. History of gout. 5. Hyperlipidemia. 6. History of cardiac arrhythmia. PAST SURGICAL HISTORY: Status post PD catheter placement, status post right nephrectomy for renal cancer, status post appendectomy, status post right leg surgery, status post pacemaker placement. SOCIAL HISTORY: The patient lives in [place]. He lives with his one of his children. 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 He has a total of 11 children. He is single. He dips snuff. No drug abuse. Currently, no alcohol. Status post multiple blood transfusions. ALLERGIES: NONE. TRAUMA: Status post right leg fracture. IMMUNIZATION: Up-to-date. HOSPITALIZATIONS: Please see past medical history. PHYSICAL EXAMINATION: VITAL SIGNS: Blood pressure is 189/97, heart rate 75, respiratory rate 19, temperature 97.7, O2 saturation 98% on room air. GENERAL: Awake, alert, comfortable, not in distress. SKIN: Adequate turgor. HEENT: Slightly pale conjunctivae. Anicteric sclerae. No neck mass. No carotid bruits. No JVD. CHEST: No deformities. LUNGS: Clear breath sounds. HEART: Normal sinus rhythm. No murmur. No gallops. No rubs. ABDOMEN: Globular, soft, nontender. No masses. EXTREMITIES: No edema. No deformities. Please note, he has a PD catheter. LABORATORY DATA: On August 22, 2019; white count 4.9, hemoglobin 10.6. Sodium 137, potassium 4.1, chloride 99, carbon dioxide 26, BUN 25, creatinine 8.84, glucose 93, calcium 8.3, albumin 3.3. Troponin I 0.131. Chest x-ray of August 22, 2019, shows no acute abnormality. Cardiac echo of December 30, 2018, normal EF. ASSESSMENT AND PLAN: 1. Chest pain. The patient is being ruled out for myocardial infarction. Continue supportive care. Consider Cardiology consult if needed. 2. End-stage renal disease, stable. We will resume back his regular continuous cycling peritoneal dialysis regimen. Fluid removal as tolerated via the peritoneal dialysis. Review of his last Kt/V suggests he is adequately dialyzed with the current peritoneal dialysis regimen. 3. Anemia. Start Epogen 7500 units subcu every week. 4. Recheck basic metabolic panel and CBC in a.m. Job ID: [id number]
[2019-08-22] MEDS ORDERED: Tamsulosin HCl 0.4 MG CAP PO SCH (21:00)
[2019-08-23 04:47] LABS: #Eosinphils 0.1 thou/uL (0.0-0.7); #Lymphocytes 1.3 thou/uL (1.20-3.40); #Monocytes 0.5 thou/uL (0.11-0.59); #Neutrophils 2.1 thou/uL (1.40-6.50); %Eosinophils 3.1 % (0.0-10.0); %Monocytes 12.1 % (0.0-10.0); %Neutrophils 51.8 % (42.0-75.0); Hemoglobin 9.5 g/dL (14.0-18.0); Mean Corpuscular HGB CONC 33.7 g/dL (32.0-36.0); Mean Corpuscular Hemoglobin 33.1 pg (27.0-31.0); Mean Corpuscular Volume 98.1 fL (78.0-98.0); Mean Platelet Volume 8.1 fL (7.4-10.4); Platelet Count 131 thou/uL (130-400); RBC Distribution Width 12.9 % (11.5-14.5); Red Blood Cell (RBC) Count 2.87 mill/uL (4.70-6.10)
[2019-08-23 05:02] LABS: Anion Gap 12 mmol/L (10-20); BUN (Urea Nitrogen) 25 mg/dL (8.4-25.7); Calc. Creatinine Clearance 6 mL/min (70-130); Calcium 8.4 mg/dL (7.8-10.44); Carbon Dioxide 29 mmol/L (23-31); Cardiac Risk 2.4 (Less than 4.5); Chloride 100 mmol/L (98-107); Cholesterol 180 mg/dl (< 200 Desired); Estimated GFR-MDRD 7; Glucose 101 mg/dL (83-110); HDL Cholesterol 74 mg/dL (>60 Neg Risk); LDL Cholesterol, Calculated 99 mg/dL; Sodium 138 mmol/L (136-145); Triglycerides 33 mg/dL (Less than 150)
[2019-08-23 05:07] LABS: Potassium 2.9 mmol/L (3.5-5.1)
[2019-08-23] MEDS ORDERED: Potassium Chloride 20 MEQ TAB PO SCH (06:00)
[2019-08-23] MEDS: Potassium Chloride 20 MEQ TAB PO SCH ×2 (06:06→11:44)
[2019-08-23] MEDS ORDERED: Cinacalcet HCl 30 MG TAB PO SCH (07:30)
[2019-08-23] MEDS: hydrALAZINE 10 MG TAB PO SCH (08:25)
[2019-08-23] MEDS: Metoprolol Tartrate 25 MG TAB PO SCH (08:26)
[2019-08-23] MEDS ORDERED: Aspirin 325 mg Enteric Coated Tablet PO SCH (09:00)
[2019-08-23] MEDS ORDERED: Amlodipine 5 MG TAB PO SCH (09:00)
[2019-08-23] MEDS ORDERED: Enoxaparin Sodium 30 MG/0.3 ML SYRINGE SC SCH (09:00)
--- NOTE | 2019-08-23 09:37 | PRG ---
DATE OF SERVICE: 08/23/2019 SERVICE: Renal Medicine. SUBJECTIVE: Mr. Soto is an 88-year-old black male with ESRD and currently on peritoneal dialysis. He tolerated the peritoneal dialysis last night. No other complaints. No chest pain. He was initially admitted for chest pain, but clinically he is asymptomatic today. OBJECTIVE: VITAL SIGNS: Blood pressure 176/93, heart rate 78, respiratory rate 19, temperature 98, and pulse ox 99%. GENERAL: The patient is awake, alert, comfortable, not in distress. SKIN: Adequate turgor. HEENT: Pinkish conjunctivae. Anicteric sclerae. NECK: No neck mass. No carotid bruits. No JVD. CHEST: No deformities. LUNGS: Clear breath sounds. HEART: Normal sinus rhythm. No murmurs. No gallops. No rubs. ABDOMEN: Globular, soft, nontender. No masses. Positive for PD catheter. EXTREMITIES: No edema. No deformities. MEDICATIONS: Medications of August 23, 2019, were reviewed. LABORATORY DATA: Laboratories of August 23, 2019; white count 4, hemoglobin 9.5. Sodium 138, potassium 2.9, chloride 100, carbon dioxide 29, BUN 25, creatinine 8.77, glucose 101, calcium 8.4. ASSESSMENT AND PLAN: 1. Hypokalemia. P.r.n. potassium replacement. 2. End-stage renal disease, stable. We will continue current CCPD regimen. Tolerating said treatment. 3. Anemia, continuing weekly Epogen regimen. Overall, agree with current management. Job ID: [id number]
[2019-08-23 11:42] VITALS: BP 160/82; TEMP 98.2
--- NOTE | 2019-08-24 12:20 | DIS ---
DATE OF ADMISSION: 08/22/2019 DATE OF DISCHARGE: 08/23/2019 DISCHARGE DISPOSITION: To home. PRIMARY DISCHARGE DIAGNOSIS: Chest pain, which is noncardiac. SECONDARY DISCHARGE DIAGNOSES: History of minimal coronary artery disease; end-stage renal disease, on peritoneal dialysis; pacemaker; dyslipidemia; hypertension; and history of right nephrectomy for cancer. PROCEDURES DONE DURING HOSPITALIZATION: Chest x-ray done showed no acute cardiopulmonary abnormality. H and H 10 and 28, platelet count 131, MCV is 98, and white count of 4. Discharge potassium of 2.9 and was supplemented. BUN 25 and creatinine 8.7. Troponin I was indeterminate at 0.14. CK-MB 1.4 and albumin 3.3. Total cholesterol 180, triglycerides 33, LDL 99, and HDL 74. DISCHARGE MEDICATIONS: 1. Aspirin 81 mg p.o. daily. 2. Calcitriol 0.25 mcg on Thursday, Thursday, and Thursday. 3. Vitamin D3 2000 units p.o. daily. 4. Cinacalcet 30 mg p.o. daily. 5. Hydralazine 50 mg twice daily. 6. Flomax 0.4 mg p.o. daily. 7. Ultram 50 mg twice daily. 8. Norvasc 5 mg daily. 9. Pepcid 20 mg daily. 10. Metoprolol tartrate 50 mg twice daily. ALLERGIES: NO KNOWN DRUG ALLERGIES. INPATIENT CONSULT: Dr. Richardson for Nephrology. DISCHARGE PLAN: The patient to find a new primary care physician and follow up in 1 week. His primary care physician, Dr. Leon, has moved to [place]. He needs to follow up with Dr. Richardson in a week. BRIEF COURSE DURING HOSPITALIZATION: The patient initially came to the ER with complaints of left upper chest wall pain. In view of this history and prior history of minimal CAD on coronary angiogram done in 2017, the patient was placed under observation on telemetry. The patient did not have any further episodes of chest pain. His troponin is mildly indeterminate due to end-stage renal disease. The patient's chest pain is noncardiac. He has had a peritoneal dialysis done through the night on the day of hospitalization. His potassium was low and has been replaced with two doses. His peritoneal dialysis bath will be changed due to current hypokalemia by Dr. Richardson. He will follow up with him in the outpatient setting in a week as well. He is hemodynamically stable and will be shortly discharged home. Please note, I have seen and examined the patient on the day of discharge. Job ID: [id number] MTDD
== END 2019-08-23 13:40 | disposition home or self-care (01) ==
LOC: ERS 09:31 → 2NO 15:20
PROVIDERS: ADMIT Internal Medicine; ATTEND Internal Medicine
DX: R07.89 Other chest pain (principal); I12.0 Hypertensive chronic kidney disease with stage 5 chronic kidney disease or end stage renal disease; N18.6 End stage renal disease; D63.1 Anemia in chronic kidney disease; I25.10 Atherosclerotic heart disease of native coronary artery without angina pectoris; F17.220 Nicotine dependence, chewing tobacco, uncomplicated; E78.5 Hyperlipidemia, unspecified; E87.6 Hypokalemia; Z79.899 Other long term (current) drug therapy; Z99.2 Dependence on renal dialysis; Z95.0 Presence of cardiac pacemaker
CPT/HCPCS: 71045; 80048; 80053; 80061; 82550; 82553; 82962; 84484 ×2; 85025 ×2; 93005; 94760; 96372 ×2; 97139; 99285; G0378 ×3; J1650; Q5105; 36415; 36416; 90945; G0257

== ENCOUNTER 2020-07-18 09:47 | Day surgery (SDC) | payer MEDICARE, MEDICAID ==
[~2020-07-18 09:47] MED LIST: Lidocaine 1% PF 5 ML VIAL ONE; PROPOFOL 200 MG/20 ML VIAL ONE
== END 2020-07-18 12:15 | disposition home or self-care (01) ==
LOC: SDC 09:47
PROVIDERS: ATTEND Internal Medicine Gastroenterology
PROC: 0DJ08ZZ Inspection of Upper Intestinal Tract, Via Natural or Artificial Opening Endoscopic (ICD-10-PCS; principal; 2020-07-18)
PROC: 0DBL8ZX Excision of Transverse Colon, Via Natural or Artificial Opening Endoscopic, Diagnostic (ICD-10-PCS; 2020-07-18)
DX: D12.3 Benign neoplasm of transverse colon (principal); I12.0 Hypertensive chronic kidney disease with stage 5 chronic kidney disease or end stage renal disease; N18.6 End stage renal disease; D63.1 Anemia in chronic kidney disease; I48.91 Unspecified atrial fibrillation; I25.2 Old myocardial infarction; E78.00 Pure hypercholesterolemia, unspecified; F17.200 Nicotine dependence, unspecified, uncomplicated; Z86.010 Personal history of colon polyps; Z79.82 Long term (current) use of aspirin; Z79.899 Other long term (current) drug therapy; Z95.0 Presence of cardiac pacemaker
CPT/HCPCS: 88305; J2704

== ENCOUNTER 2021-08-22 15:48 | Emergency (ER) | payer MEDICARE, MEDICAID ==
[2021-08-22 17:50] LABS: #Eosinphils 0.1 thou/uL (0.0-0.7); #Lymphocytes 1.5 thou/uL (1.20-3.40); #Monocytes 0.7 thou/uL (0.11-0.59); #Neutrophils 4.3 thou/uL (1.40-6.50); %Basophils 0.1 % (0.0-1.0); %Lymphocytes 22.6 % (21.0-51.0); %Neutrophils 66.3 % (42.0-75.0); Hemoglobin 10.1 g/dL (14.0-18.0); Mean Corpuscular HGB CONC 32.2 g/dL (32.0-36.0); Mean Corpuscular Hemoglobin 33.3 pg (27.0-31.0); Mean Platelet Volume 7.1 fL (7.4-10.4); Platelet Count 175 thou/uL (130-400); RBC Distribution Width 14.3 % (11.5-14.5); Red Blood Cell (RBC) Count 3.03 mill/uL (4.70-6.10); White Blood Cell (WBC) Count 6.5 thou/uL (4.8-10.8)
[2021-08-22 18:10] LABS: ALT (SGPT) 13 U/L (8-55); AST (SGOT) 29 U/L (5-34); Albumin 2.9 g/dL (3.4-4.8); Alkaline Phosphatase 76 U/L (40-110); Anion Gap 18 mmol/L (10-20); BUN (Urea Nitrogen) 33 mg/dL (8.4-25.7); Bilirubin, Total 0.5 mg/dL (0.2-1.2); Calc. Creatinine Clearance 0 mL/min (70-130); Calcium 11.1 mg/dL (7.8-10.44); Carbon Dioxide 25 mmol/L (23-31); Chloride 101 mmol/L (98-107); Globulin 3.4 g/dL (2.4-3.5); Glucose 60 mg/dL (83-110); Potassium 6.1 mmol/L (3.5-5.1); Protein, Total 6.3 g/dL (5.8-8.1); Sodium 138 mmol/L (136-145)
== END 2021-08-22 19:33 | disposition home or self-care (01) ==
LOC: ERS 15:48
DX: I12.0 Hypertensive chronic kidney disease with stage 5 chronic kidney disease or end stage renal disease (principal); N18.6 End stage renal disease; M54.9 Dorsalgia, unspecified; E87.5 Hyperkalemia; R00.0 Tachycardia, unspecified; I45.10 Unspecified right bundle-branch block; E78.5 Hyperlipidemia, unspecified; I25.2 Old myocardial infarction; E78.00 Pure hypercholesterolemia, unspecified; F17.220 Nicotine dependence, chewing tobacco, uncomplicated; Z99.2 Dependence on renal dialysis; Z95.0 Presence of cardiac pacemaker
CPT/HCPCS: 72040; 72072; 72100; 80053; 85025; 93005

== ENCOUNTER 2021-12-08 13:12 | Inpatient (IN) | payer MEDICARE, MEDICAID ==
[2021-12-08 13:59] LABS: #Eosinphils 0.2 thou/uL (0.0-0.7); #Lymphocytes 1.4 thou/uL (1.20-3.40); #Monocytes 0.8 thou/uL (0.11-0.59); #Neutrophils 9.1 thou/uL (1.40-6.50); %Basophils 0.1 % (0.0-1.0); %Eosinophils 1.4 % (0.0-10.0); %Lymphocytes 11.9 % (21.0-51.0); %Monocytes 7.1 % (0.0-10.0); %Neutrophils 79.5 % (42.0-75.0); Hemoglobin 10.9 g/dL (14.0-18.0); Mean Corpuscular HGB CONC 33.3 g/dL (32.0-36.0); Mean Corpuscular Hemoglobin 33.1 pg (27.0-31.0); Mean Corpuscular Volume 99.5 fL (78.0-98.0); Mean Platelet Volume 6.7 fL (7.4-10.4); Platelet Count 284 thou/uL (130-400); RBC Distribution Width 14.4 % (11.5-14.5); Red Blood Cell (RBC) Count 3.29 mill/uL (4.70-6.10); White Blood Cell (WBC) Count 11.5 thou/uL (4.8-10.8)
[2021-12-08 14:17] LABS: ALT (SGPT) 15 U/L (8-55); AST (SGOT) 24 U/L (5-34); Albumin 2.2 g/dL (3.4-4.8); Alkaline Phosphatase 79 U/L (40-110); Anion Gap 18 mmol/L (10-20); BUN (Urea Nitrogen) 19 mg/dL (8.4-25.7); Bilirubin, Total 0.5 mg/dL (0.2-1.2); Calc. Creatinine Clearance 0 mL/min (70-130); Calcium 10.9 mg/dL (7.8-10.44); Carbon Dioxide 27 mmol/L (23-31); Chloride 90 mmol/L (98-107); Estimated GFR 11; Glucose 80 mg/dL (83-110); Protein, Total 6.2 g/dL (5.8-8.1); Sodium 133 mmol/L (136-145)
[2021-12-08 14:22] LABS: Potassium 2.1 mmol/L (3.5-5.1)
[2021-12-08] MEDS ORDERED: Potassium Chloride 20 MEQ TAB ONE (14:31)
[2021-12-08] MEDS ORDERED: Potassium Chloride 20 MEQ/100 ML PREMIX BAG ONE (14:31)
[2021-12-08 14:50] LABS: CKMB 4.2 ng/mL (0-6.6)
[2021-12-08 19:06] LABS: Magnesium 1.4 mg/dL (1.6-2.6)
[2021-12-08] MEDS ORDERED: Sodium Chloride 0.9% 1,000 ML IV SCH (19:15)
[2021-12-08] MEDS ORDERED: Potassium Chloride 20 MEQ TAB PO SCH (19:15)
[2021-12-08] MEDS ORDERED: Sodium Chloride 0.9% 500 ML IV SCH (19:15)
[2021-12-08 19:17] LABS: Troponin I 2.158 ng/mL (< 0.028)
[2021-12-08] MEDS ORDERED: Magnesium 2 GM/50 ML(in water) 2 GM in Premix Bag 1 BAG IVPB SCH (21:00)
[2021-12-08] MEDS ORDERED: Acetaminophen 325 MG TAB PO PRN (22:26)
[2021-12-08] MEDS ORDERED: Ondansetron ODT 4 MG TAB PO PRN (22:26)
[2021-12-08] MEDS ORDERED: Ondansetron PF 4 MG/2 ML Vial IVP PRN (22:26)
[2021-12-08 22:28] LABS: Critical Call Chem Troponin I RESULT DECREASING; Troponin I 1.975 ng/mL (< 0.028)
[2021-12-08 23:28] LABS: Anion Gap 20 mmol/L (10-20); BUN (Urea Nitrogen) 22 mg/dL (8.4-25.7); Calc. Creatinine Clearance 0 mL/min (70-130); Carbon Dioxide 25 mmol/L (23-31); Chloride 96 mmol/L (98-107); Estimated GFR 10; Glucose 78 mg/dL (83-110); Potassium 3.5 mmol/L (3.5-5.1); Sodium 137 mmol/L (136-145)
[2021-12-08] MEDS: Albumin 25% 25 GM/100 ML BOT IVPB SCH (23:38)
[2021-12-09 00:24] VITALS: BMI 17.4
[2021-12-09] MEDS ORDERED: Dextrose 5% in Water 1,000 ML IV PRN (01:48)
[2021-12-09] MEDS ORDERED: Dextrose 50% Abboject 50 ML SYRINGE SLOW IVP PRN (01:48)
[2021-12-09] MEDS ORDERED: Dextrose 10% in Water 1,000 ML IV SCH (02:00)
[2021-12-09 04:58] LABS: #Eosinphils 0.6 thou/uL (0.0-0.7); #Lymphocytes 1.8 thou/uL (1.20-3.40); #Monocytes 0.8 thou/uL (0.11-0.59); #Neutrophils 8.8 thou/uL (1.40-6.50); %Basophils 0.2 % (0.0-1.0); %Eosinophils 5.1 % (0.0-10.0); %Lymphocytes 14.8 % (21.0-51.0); %Monocytes 6.7 % (0.0-10.0); %Neutrophils 73.3 % (42.0-75.0); Hemoglobin 9.6 g/dL (14.0-18.0); Mean Corpuscular HGB CONC 33.3 g/dL (32.0-36.0); Mean Corpuscular Volume 99.1 fL (78.0-98.0); Mean Platelet Volume 8.2 fL (7.4-10.4); Platelet Count 190 thou/uL (130-400); RBC Distribution Width 14.5 % (11.5-14.5)
[2021-12-09 08:20] LABS: Anion Gap 14 mmol/L (10-20); BUN (Urea Nitrogen) 22 mg/dL (8.4-25.7); Calc. Creatinine Clearance 7 mL/min (70-130); Calcium 10.8 mg/dL (7.8-10.44); Carbon Dioxide 26 mmol/L (23-31); Chloride 96 mmol/L (98-107); Estimated GFR 10; Glucose 94 mg/dL (83-110); Sodium 133 mmol/L (136-145)
[2021-12-09 08:22] LABS: Potassium 2.6 mmol/L (3.5-5.1)
[2021-12-09] MEDS ORDERED: EPOETIN ALFA-EPBX (ESRD) 4,000 UNIT/ML VIAL SC SCH (09:00)
[2021-12-09] MEDS ORDERED: EPOETIN ALFA-EPBX (ESRD) 10,000 UNIT/ML VIAL SC SCH (10:00)
[2021-12-09] MEDS: Heparin 5,000 UNITS/ML VIAL SC SCH ×3 (10:11→21:31)
[2021-12-09] MEDS ORDERED: Potassium Chloride 20 MEQ TAB PO SCH (10:45)
[2021-12-09] MEDS: Epoetin (ESRD) 10,000 UNITS/ML VIAL SC SCH (13:16)
[2021-12-09] MEDS: NS 0.9% w/ 40 MEQ KCL 1,000 ML IV SCH (13:17)
[2021-12-09] MEDS: Albumin 25% 25 GM/100 ML BOT IVPB SCH (21:28)
[2021-12-09] MEDS: Mirtazapine 30 MG Soltab PO SCH (21:31)
[2021-12-09 22:43] LABS: Anion Gap 13 mmol/L (10-20); BUN (Urea Nitrogen) 21 mg/dL (8.4-25.7); Calc. Creatinine Clearance 7 mL/min (70-130); Calcium 10.9 mg/dL (7.8-10.44); Carbon Dioxide 28 mmol/L (23-31); Chloride 97 mmol/L (98-107); Estimated GFR 9; Glucose 78 mg/dL (83-110); Sodium 135 mmol/L (136-145)
[2021-12-09 22:46] LABS: Potassium 2.6 mmol/L (3.5-5.1)
[2021-12-09] MEDS ORDERED: Electrolyte Replacement Protocol 1 EACH FS PRN ×2 (23:30→23:31)
[2021-12-10] MEDS ORDERED: Potassium Chloride 20 MEQ TAB PO SCH (00:01)
[2021-12-10 00:08] LABS: Magnesium 1.6 mg/dL (1.6-2.6)
[2021-12-10] MEDS ORDERED: Magnesium Sulfate In Water 4 GM in Premix Bag 1 BAG IVPB SCH (02:30)
[2021-12-10] MEDS: Heparin 5,000 UNITS/ML VIAL SC SCH ×3 (09:12→21:32)
[2021-12-10] MEDS: NS 0.9% w/ 40 MEQ KCL 1,000 ML IV SCH (09:35)
[2021-12-10 13:33] LABS: #Eosinphils 0.6 thou/uL (0.0-0.7); #Monocytes 0.5 thou/uL (0.11-0.59); #Neutrophils 7.3 thou/uL (1.40-6.50); %Basophils 0.1 % (0.0-1.0); %Eosinophils 6.9 % (0.0-10.0); %Lymphocytes 10.3 % (21.0-51.0); %Monocytes 5.2 % (0.0-10.0); %Neutrophils 77.5 % (42.0-75.0); Hemoglobin 10.3 g/dL (14.0-18.0); Mean Corpuscular HGB CONC 33.5 g/dL (32.0-36.0); Mean Corpuscular Hemoglobin 33.4 pg (27.0-31.0); Mean Corpuscular Volume 99.9 fL (78.0-98.0); Mean Platelet Volume 6.4 fL (7.4-10.4); Platelet Count 279 thou/uL (130-400); RBC Distribution Width 14.8 % (11.5-14.5); Red Blood Cell (RBC) Count 3.08 mill/uL (4.70-6.10); White Blood Cell (WBC) Count 9.4 thou/uL (4.8-10.8)
[2021-12-10 13:55] LABS: Anion Gap 14 mmol/L (10-20); BUN (Urea Nitrogen) 23 mg/dL (8.4-25.7); Calc. Creatinine Clearance 7 mL/min (70-130); Carbon Dioxide 26 mmol/L (23-31); Chloride 98 mmol/L (98-107); Estimated GFR 9; Glucose 87 mg/dL (83-110); Magnesium 2.6 mg/dL (1.6-2.6); Potassium 3.7 mmol/L (3.5-5.1); Sodium 134 mmol/L (136-145)
[2021-12-10] MEDS: Mirtazapine 30 MG Soltab PO SCH (21:33)
[2021-12-10] MEDS ORDERED: Sodium Chloride 0.9% 250 ML 250 ML IVPB SCH (23:30)
[2021-12-11] MEDS ORDERED: Sodium Chloride 0.9% 250 ML 250 ML IVPB SCH (01:30)
[2021-12-11 06:58] LABS: #Eosinphils 0.6 thou/uL (0.0-0.7); #Lymphocytes 1.3 thou/uL (1.20-3.40); #Monocytes 0.7 thou/uL (0.11-0.59); #Neutrophils 7.1 thou/uL (1.40-6.50); %Basophils 0.2 % (0.0-1.0); %Eosinophils 6.2 % (0.0-10.0); %Lymphocytes 13.1 % (21.0-51.0); %Monocytes 6.8 % (0.0-10.0); %Neutrophils 73.7 % (42.0-75.0); Hemoglobin 10.1 g/dL (14.0-18.0); Mean Corpuscular HGB CONC 33.9 g/dL (32.0-36.0); Mean Corpuscular Hemoglobin 33.7 pg (27.0-31.0); Mean Corpuscular Volume 99.6 fL (78.0-98.0); Mean Platelet Volume 6.8 fL (7.4-10.4); Platelet Count 295 thou/uL (130-400); RBC Distribution Width 14.8 % (11.5-14.5); Red Blood Cell (RBC) Count 2.98 mill/uL (4.70-6.10); White Blood Cell (WBC) Count 9.7 thou/uL (4.8-10.8)
[2021-12-11 07:13] LABS: Anion Gap 14 mmol/L (10-20); BUN (Urea Nitrogen) 24 mg/dL (8.4-25.7); Calc. Creatinine Clearance 7 mL/min (70-130); Calcium 11.3 mg/dL (7.8-10.44); Carbon Dioxide 26 mmol/L (23-31); Chloride 98 mmol/L (98-107); Estimated GFR 9; Glucose 113 mg/dL (83-110); Magnesium 2.3 mg/dL (1.6-2.6); Potassium 3.2 mmol/L (3.5-5.1); Sodium 135 mmol/L (136-145)
[2021-12-11] MEDS: Heparin 5,000 UNITS/ML VIAL SC SCH ×3 (10:41→20:09)
[2021-12-11] MEDS: NS 0.9% w/ 40 MEQ KCL 1,000 ML IV SCH (16:54)
[2021-12-11] MEDS: Mirtazapine 30 MG Soltab PO SCH (22:49)
[2021-12-12] MEDS: NS 0.9% w/ 40 MEQ KCL 1,000 ML IV SCH ×2 (04:14→09:03)
[2021-12-12 05:16] LABS: #Eosinphils 0.6 thou/uL (0.0-0.7); #Monocytes 0.7 thou/uL (0.11-0.59); #Neutrophils 6.8 thou/uL (1.40-6.50); %Basophils 0.4 % (0.0-1.0); %Eosinophils 6.3 % (0.0-10.0); %Lymphocytes 10.8 % (21.0-51.0); %Monocytes 7.7 % (0.0-10.0); %Neutrophils 74.9 % (42.0-75.0); Hemoglobin 10.3 g/dL (14.0-18.0); Mean Corpuscular HGB CONC 32.6 g/dL (32.0-36.0); Mean Platelet Volume 6.6 fL (7.4-10.4); Platelet Count 279 thou/uL (130-400); RBC Distribution Width 14.9 % (11.5-14.5); Red Blood Cell (RBC) Count 3.11 mill/uL (4.70-6.10); White Blood Cell (WBC) Count 9.1 thou/uL (4.8-10.8)
[2021-12-12 05:41] LABS: Anion Gap 12 mmol/L (10-20); BUN (Urea Nitrogen) 27 mg/dL (8.4-25.7); Calc. Creatinine Clearance 7 mL/min (70-130); Calcium 11.9 mg/dL (7.8-10.44); Carbon Dioxide 27 mmol/L (23-31); Chloride 96 mmol/L (98-107); Estimated GFR 10; Glucose 109 mg/dL (83-110); Potassium 3.4 mmol/L (3.5-5.1); Sodium 132 mmol/L (136-145)
[2021-12-12] MEDS: Heparin 5,000 UNITS/ML VIAL SC SCH ×3 (09:03→21:13)
[2021-12-12] MEDS ORDERED: cefTRIAXone\\ROCEPHIN 1 GM in Sodium Chloride 0.9% 100 ML IVPB SCH (09:45)
[2021-12-12] MEDS ORDERED: cefTRIAXone\\ROCEPHIN 1 GM VIAL ONE (10:13)
[2021-12-12 21:06] LABS: RBC Count-Automated (BF) 460 /cu.mm; WBC/Nucleated-Auto (BF) 3207 /cu.mm
[2021-12-12 21:09] LABS: BF Color Yellow; Body Fluid Source Peritoneal Fluid; Clarity Hazy (Clear); Tube # EDTA
[2021-12-12] MEDS: Mirtazapine 30 MG Soltab PO SCH (21:13)
[2021-12-12 21:33] LABS: BF Segmented Neutrophils 92 %; Cell Count Non Hematic 3 %; Eosinophils 1 %; Lymphocytes 4 %
[2021-12-13] MEDS: NS 0.9% w/ 40 MEQ KCL 1,000 ML IV SCH (02:34)
[2021-12-13 05:23] LABS: #Eosinphils 0.5 thou/uL (0.0-0.7); #Lymphocytes 1.2 thou/uL (1.20-3.40); #Monocytes 0.9 thou/uL (0.11-0.59); #Neutrophils 7.6 thou/uL (1.40-6.50); %Eosinophils 5.2 % (0.0-10.0); %Lymphocytes 11.8 % (21.0-51.0); %Monocytes 8.5 % (0.0-10.0); %Neutrophils 74.5 % (42.0-75.0); Mean Corpuscular HGB CONC 32.1 g/dL (32.0-36.0); Mean Corpuscular Hemoglobin 32.9 pg (27.0-31.0); Mean Platelet Volume 6.6 fL (7.4-10.4); Platelet Count 260 thou/uL (130-400); RBC Distribution Width 15.2 % (11.5-14.5); Red Blood Cell (RBC) Count 2.73 mill/uL (4.70-6.10); White Blood Cell (WBC) Count 10.3 thou/uL (4.8-10.8)
[2021-12-13 05:45] LABS: Anion Gap 11 mmol/L (10-20); BUN (Urea Nitrogen) 30 mg/dL (8.4-25.7); Calc. Creatinine Clearance 8 mL/min (70-130); Carbon Dioxide 28 mmol/L (23-31); Chloride 98 mmol/L (98-107); Estimated GFR 10; Glucose 99 mg/dL (83-110); Magnesium 1.9 mg/dL (1.6-2.6); Phosphorus 2.3 mg/dL (2.3-4.7); Potassium 3.6 mmol/L (3.5-5.1); Sodium 133 mmol/L (136-145)
[2021-12-13 05:48] LABS: Calcium 12.2 mg/dL (7.8-10.44)
[2021-12-13] MEDS ORDERED: cefTRIAXone\\ROCEPHIN 1 GM in Sodium Chloride 0.9% 100 ML IVPB SCH (09:00)
[2021-12-13] MEDS ORDERED: VANCOMYCIN 1.25 GM/250 ML BAG IVPB SCH ×2 (11:00→21:00)
[2021-12-13] MEDS ORDERED: Vancomycin Sliding Scale 1 EACH IVPB SCH (11:00)
[2021-12-13] MEDS: Heparin 5,000 UNITS/ML VIAL SC SCH ×3 (11:09→20:36)
[2021-12-13] MEDS ORDERED: VANCOMYCIN 1.25 GM/250 ML BAG 1.25 GM in Premix Bag 1 BAG IVPB SCH (13:45)
[2021-12-13] MEDS: Mirtazapine 30 MG Soltab PO SCH (20:36)
[2021-12-14] MEDS: NS 0.9% w/ 40 MEQ KCL 1,000 ML IV SCH ×2 (00:08→22:05)
[2021-12-14 05:19] LABS: Anion Gap 10 mmol/L (10-20); BUN (Urea Nitrogen) 36 mg/dL (8.4-25.7); Calc. Creatinine Clearance 7 mL/min (70-130); Carbon Dioxide 26 mmol/L (23-31); Chloride 99 mmol/L (98-107); Estimated GFR 9; Glucose 123 mg/dL (83-110); Potassium 3.7 mmol/L (3.5-5.1); Sodium 131 mmol/L (136-145)
[2021-12-14 05:33] LABS: Calcium 12.6 mg/dL (7.8-10.44)
[2021-12-14] MEDS: Heparin 5,000 UNITS/ML VIAL SC SCH ×3 (08:51→20:45)
[2021-12-14 11:36] LABS: Vancomycin, Trough 13.3 ug/mL
[2021-12-14] MEDS ORDERED: Cinacalcet HCl 30 MG TAB PO SCH (12:45)
[2021-12-14] MEDS ORDERED: Vancomycin HCl 500 MG in Sodium Chloride 0.9% 100 ML IVPB SCH (13:00)
[2021-12-14] MEDS ORDERED: Vancomycin HCl 1 GM in PERIT. DIALYSIS NO.6-1.5 % DEX 2,000 ML IP SCH (14:15)
[2021-12-14] MEDS: Mirtazapine 30 MG Soltab PO SCH (20:45)
[2021-12-15 05:50] LABS: Anion Gap 8 mmol/L (10-20); BUN (Urea Nitrogen) 39 mg/dL (8.4-25.7); Calc. Creatinine Clearance 7 mL/min (70-130); Carbon Dioxide 29 mmol/L (23-31); Chloride 99 mmol/L (98-107); Estimated GFR 10; Glucose 108 mg/dL (83-110); Potassium 4.1 mmol/L (3.5-5.1); Sodium 132 mmol/L (136-145)
[2021-12-15 05:55] LABS: Calcium 12.6 mg/dL (7.8-10.44)
[2021-12-15] MEDS: Cinacalcet HCl 30 MG TAB PO SCH (09:13)
[2021-12-15] MEDS: Heparin 5,000 UNITS/ML VIAL SC SCH ×3 (09:13→21:15)
[2021-12-15] MEDS: Pantoprazole 40 MG VIAL IVP SCH (09:14)
[2021-12-15] MEDS: Vancomycin HCl 1 GM in PERIT. DIALYSIS NO.6-1.5 % DEX 2,000 ML IP SCH (15:28)
[2021-12-15] MEDS: NS 0.9% w/ 40 MEQ KCL 1,000 ML IV SCH (19:25)
[2021-12-15] MEDS: Mirtazapine 30 MG Soltab PO SCH (21:15)
[2021-12-16 05:20] LABS: #Eosinphils 0.6 thou/uL (0.0-0.7); #Lymphocytes 1.1 thou/uL (1.20-3.40); #Monocytes 0.9 thou/uL (0.11-0.59); #Neutrophils 7.6 thou/uL (1.40-6.50); %Basophils 0.4 % (0.0-1.0); %Eosinophils 5.8 % (0.0-10.0); %Lymphocytes 10.6 % (21.0-51.0); %Monocytes 8.7 % (0.0-10.0); %Neutrophils 74.5 % (42.0-75.0); Hemoglobin 10.1 g/dL (14.0-18.0); Mean Corpuscular HGB CONC 32.8 g/dL (32.0-36.0); Mean Corpuscular Hemoglobin 33.9 pg (27.0-31.0); Mean Platelet Volume 6.6 fL (7.4-10.4); Platelet Count 269 thou/uL (130-400); RBC Distribution Width 15.5 % (11.5-14.5); Red Blood Cell (RBC) Count 2.97 mill/uL (4.70-6.10); White Blood Cell (WBC) Count 10.1 thou/uL (4.8-10.8)
[2021-12-16 05:38] LABS: Anion Gap 12 mmol/L (10-20); BUN (Urea Nitrogen) 39 mg/dL (8.4-25.7); Calc. Creatinine Clearance 8 mL/min (70-130); Carbon Dioxide 25 mmol/L (23-31); Chloride 98 mmol/L (98-107); Estimated GFR 10; Glucose 123 mg/dL (83-110); Potassium 4.3 mmol/L (3.5-5.1); Sodium 131 mmol/L (136-145)
[2021-12-16 05:41] LABS: Calcium 13.1 mg/dL (7.8-10.44); Vancomycin, Random 23.6 ug/mL (See Comment)
[2021-12-16] MEDS: Cinacalcet HCl 30 MG TAB PO SCH (09:36)
[2021-12-16] MEDS: Pantoprazole 40 MG VIAL IVP SCH (09:36)
[2021-12-16] MEDS: Heparin 5,000 UNITS/ML VIAL SC SCH ×3 (09:37→22:00)
[2021-12-16] MEDS: Vancomycin HCl 1 GM in PERIT. DIALYSIS NO.6-1.5 % DEX 2,000 ML IP SCH (10:08)
[2021-12-16] MEDS: Epoetin (ESRD) 10,000 UNITS/ML VIAL SC SCH (10:39)
[2021-12-16] MEDS: NS 0.9% w/ 40 MEQ KCL 1,000 ML IV SCH (18:17)
[2021-12-16] MEDS: Mirtazapine 30 MG Soltab PO SCH (21:52)
[2021-12-17 06:10] LABS: #Eosinphils 0.5 thou/uL (0.0-0.7); #Lymphocytes 1.1 thou/uL (1.20-3.40); #Monocytes 1.2 thou/uL (0.11-0.59); #Neutrophils 11.3 thou/uL (1.40-6.50); %Basophils 0.1 % (0.0-1.0); %Eosinophils 3.5 % (0.0-10.0); %Lymphocytes 8.1 % (21.0-51.0); %Monocytes 8.4 % (0.0-10.0); Hemoglobin 9.3 g/dL (14.0-18.0); Mean Corpuscular HGB CONC 31.9 g/dL (32.0-36.0); Mean Corpuscular Hemoglobin 33.2 pg (27.0-31.0); Mean Platelet Volume 7.2 fL (7.4-10.4); Platelet Count 270 thou/uL (130-400); RBC Distribution Width 15.5 % (11.5-14.5); Red Blood Cell (RBC) Count 2.79 mill/uL (4.70-6.10); White Blood Cell (WBC) Count 14.1 thou/uL (4.8-10.8)
[2021-12-17 06:36] LABS: Anion Gap 14 mmol/L (10-20); BUN (Urea Nitrogen) 42 mg/dL (8.4-25.7); Calc. Creatinine Clearance 8 mL/min (70-130); Carbon Dioxide 26 mmol/L (23-31); Chloride 97 mmol/L (98-107); Estimated GFR 11; Glucose 92 mg/dL (83-110); Potassium 4.7 mmol/L (3.5-5.1); Sodium 132 mmol/L (136-145)
[2021-12-17] MEDS: Cinacalcet HCl 30 MG TAB PO SCH (08:11)
[2021-12-17] MEDS: Heparin 5,000 UNITS/ML VIAL SC SCH ×3 (10:12→20:24)
[2021-12-17] MEDS: Vancomycin HCl 1 GM in PERIT. DIALYSIS NO.6-1.5 % DEX 2,000 ML IP SCH (10:13)
[2021-12-17] MEDS: NS 0.9% w/ 40 MEQ KCL 1,000 ML IV SCH (16:42)
[2021-12-17] MEDS: Mirtazapine 30 MG Soltab PO SCH (20:26)
[2021-12-17] MEDS: Acetaminophen 650 MG Suppository PR PRN (22:11)
[2021-12-17] MEDS: Polyethylene Glycol 3350 17 GM Packet PER TUBE SCH ×2 (22:13→23:05)
[2021-12-18 05:28] LABS: Anion Gap 13 mmol/L (10-20); BUN (Urea Nitrogen) 41 mg/dL (8.4-25.7); Calc. Creatinine Clearance 8 mL/min (70-130); Carbon Dioxide 26 mmol/L (23-31); Chloride 98 mmol/L (98-107); Estimated GFR 11; Glucose 111 mg/dL (83-110); Potassium 4.7 mmol/L (3.5-5.1); Sodium 132 mmol/L (136-145)
[2021-12-18 05:31] LABS: Calcium 12.8 mg/dL (7.8-10.44)
[2021-12-18] MEDS: Heparin 5,000 UNITS/ML VIAL SC SCH ×3 (09:14→20:46)
[2021-12-18] MEDS: Cinacalcet HCl 30 MG TAB PO SCH (09:14)
[2021-12-18] MEDS: Vancomycin HCl 1 GM in PERIT. DIALYSIS NO.6-1.5 % DEX 2,000 ML IP SCH (09:22)
[2021-12-18] MEDS: Acetaminophen 650 MG Suppository PR PRN (10:53)
[2021-12-18] MEDS: NS 0.9% w/ 40 MEQ KCL 1,000 ML IV SCH (13:16)
[2021-12-18 15:13] LABS: A/G Ratio 0.6 (0.7-1.7); Albumin 1.8 g/dL (2.9-4.4); Alpha 1 0.5 g/dL (0.0-0.4); Alpha 2 0.8 g/dL (0.4-1.0); Beta 0.9 g/dL (0.7-1.3); Gamma 0.7 g/dL (0.4-1.8); Globulin, Total 2.9 g/dL (2.2-3.9); M-Spike Not Observed g/dL (Not Observed); Protein Electrophoresis Intrp Note: (.)
[2021-12-18] MEDS: Mirtazapine 30 MG Soltab PO SCH (20:40)
[2021-12-18] MEDS: Polyethylene Glycol 3350 17 GM Packet PER TUBE SCH (20:40)
[2021-12-19] MEDS: Acetaminophen 650 MG Suppository PR PRN (05:43)
[2021-12-19] MEDS: Cinacalcet HCl 30 MG TAB PO SCH (08:17)
[2021-12-19] MEDS: Heparin 5,000 UNITS/ML VIAL SC SCH ×3 (08:18→20:54)
[2021-12-19] MEDS: NS 0.9% w/ 40 MEQ KCL 1,000 ML IV SCH (09:11)
[2021-12-19] MEDS: Vancomycin HCl 1 GM in PERIT. DIALYSIS NO.6-1.5 % DEX 2,000 ML IP SCH (11:46)
[2021-12-19 14:56] LABS: Vancomycin, Random 36.4 ug/mL (See Comment)
[2021-12-19] MEDS ORDERED: Sodium Chloride 0.9% 500 ML IV SCH (15:15)
[2021-12-19] MEDS ORDERED: Sodium Chloride 0.9% 1,000 ML IV SCH (15:30)
[2021-12-19] MEDS: Mirtazapine 30 MG Soltab PO SCH (20:54)
[2021-12-19] MEDS: Polyethylene Glycol 3350 17 GM Packet PER TUBE SCH (20:54)
[2021-12-19] MEDS ORDERED: Cefepime 1 GM in Sodium Chloride 0.9% 100 ML IVPB SCH (21:00)
[2021-12-19] MEDS: Cefepime 1 GM in Sodium Chloride 0.9% 100 ML IVPB SCH (22:06)
[2021-12-20 05:37] LABS: #Basophils 0.1 thou/uL (0.0-0.2); #Eosinphils 0.7 thou/uL (0.0-0.7); #Lymphocytes 1.2 thou/uL (1.20-3.40); #Monocytes 0.9 thou/uL (0.11-0.59); #Neutrophils 5.8 thou/uL (1.40-6.50); %Basophils 0.8 % (0.0-1.0); %Eosinophils 8.3 % (0.0-10.0); %Monocytes 10.5 % (0.0-10.0); %Neutrophils 66.3 % (42.0-75.0); Hemoglobin 8.5 g/dL (14.0-18.0); Mean Corpuscular HGB CONC 32.3 g/dL (32.0-36.0); Mean Corpuscular Hemoglobin 33.6 pg (27.0-31.0); Mean Platelet Volume 6.9 fL (7.4-10.4); Platelet Count 304 thou/uL (130-400); RBC Distribution Width 15.1 % (11.5-14.5); Red Blood Cell (RBC) Count 2.54 mill/uL (4.70-6.10); White Blood Cell (WBC) Count 8.7 thou/uL (4.8-10.8)
[2021-12-20 05:48] LABS: ALT (SGPT) 13 U/L (8-55); AST (SGOT) 24 U/L (5-34); Albumin 1.9 g/dL (3.4-4.8); Alkaline Phosphatase 89 U/L (40-110); Anion Gap 13 mmol/L (10-20); BUN (Urea Nitrogen) 35 mg/dL (8.4-25.7); Bilirubin, Total 0.3 mg/dL (0.2-1.2); Calc. Creatinine Clearance 9 mL/min (70-130); Calcium 11.6 mg/dL (7.8-10.44); Carbon Dioxide 24 mmol/L (23-31); Chloride 102 mmol/L (98-107); Estimated GFR 12; Globulin 2.9 g/dL (2.4-3.5); Glucose 87 mg/dL (83-110); Potassium 4.6 mmol/L (3.5-5.1); Protein, Total 4.8 g/dL (5.8-8.1); Sodium 134 mmol/L (136-145)
[2021-12-20] MEDS: NS 0.9% w/ 40 MEQ KCL 1,000 ML IV SCH ×2 (06:52→07:35)
[2021-12-20] MEDS: Cinacalcet HCl 30 MG TAB PO SCH (09:22)
[2021-12-20] MEDS: Vancomycin HCl 1 GM in PERIT. DIALYSIS NO.6-1.5 % DEX 2,000 ML IP SCH (09:23)
[2021-12-20] MEDS: Heparin 5,000 UNITS/ML VIAL SC SCH ×3 (11:10→19:51)
[2021-12-20] MEDS: Mirtazapine 30 MG Soltab PO SCH (19:51)
[2021-12-20] MEDS: Polyethylene Glycol 3350 17 GM Packet PER TUBE SCH (19:51)
[2021-12-20] MEDS: Cefepime 1 GM in Sodium Chloride 0.9% 100 ML IVPB SCH (20:00)
[2021-12-21] MEDS: Heparin 5,000 UNITS/ML VIAL SC SCH ×3 (08:17→21:01)
[2021-12-21] MEDS: Cinacalcet HCl 30 MG TAB PO SCH (08:26)
[2021-12-21 10:52] LABS: #Eosinphils 0.6 thou/uL (0.0-0.7); #Lymphocytes 1.2 thou/uL (1.20-3.40); #Neutrophils 5.5 thou/uL (1.40-6.50); %Basophils 0.1 % (0.0-1.0); %Eosinophils 7.1 % (0.0-10.0); %Lymphocytes 14.1 % (21.0-51.0); %Monocytes 11.8 % (0.0-10.0); %Neutrophils 66.9 % (42.0-75.0); Hemoglobin 8.6 g/dL (14.0-18.0); Mean Corpuscular HGB CONC 32.5 g/dL (32.0-36.0); Mean Corpuscular Hemoglobin 33.4 pg (27.0-31.0); Mean Platelet Volume 6.6 fL (7.4-10.4); Platelet Count 308 thou/uL (130-400); RBC Distribution Width 14.8 % (11.5-14.5); Red Blood Cell (RBC) Count 2.57 mill/uL (4.70-6.10); White Blood Cell (WBC) Count 8.3 thou/uL (4.8-10.8)
[2021-12-21] MEDS: Vancomycin HCl 1 GM in PERIT. DIALYSIS NO.6-1.5 % DEX 2,000 ML IP SCH (11:03)
[2021-12-21 11:04] LABS: ALT (SGPT) 14 U/L (8-55); AST (SGOT) 21 U/L (5-34); Albumin 1.9 g/dL (3.4-4.8); Alkaline Phosphatase 72 U/L (40-110); Anion Gap 13 mmol/L (10-20); BUN (Urea Nitrogen) 36 mg/dL (8.4-25.7); Bilirubin, Total 0.3 mg/dL (0.2-1.2); Calc. Creatinine Clearance 8 mL/min (70-130); Carbon Dioxide 26 mmol/L (23-31); Chloride 101 mmol/L (98-107); Estimated GFR 10; Glucose 82 mg/dL (83-110); Potassium 4.3 mmol/L (3.5-5.1); Protein, Total 4.9 g/dL (5.8-8.1); Sodium 136 mmol/L (136-145)
[2021-12-21 11:06] LABS: Calcium 12.3 mg/dL (7.8-10.44)
[2021-12-21] MEDS: Lactated Ringer's 1,000 ML IV SCH (19:38)
[2021-12-21] MEDS: Cefepime 1 GM in Sodium Chloride 0.9% 100 ML IVPB SCH (21:01)
[2021-12-21] MEDS: Mirtazapine 30 MG Soltab PO SCH (21:01)
[2021-12-21] MEDS: Polyethylene Glycol 3350 17 GM Packet PER TUBE SCH (21:02)
[2021-12-22] MEDS: Lactated Ringer's 1,000 ML IV SCH ×2 (05:17→15:31)
[2021-12-22 05:29] LABS: #Eosinphils 0.6 thou/uL (0.0-0.7); #Lymphocytes 1.5 thou/uL (1.20-3.40); #Monocytes 0.9 thou/uL (0.11-0.59); #Neutrophils 5.4 thou/uL (1.40-6.50); %Basophils 0.4 % (0.0-1.0); %Eosinophils 7.1 % (0.0-10.0); %Lymphocytes 17.5 % (21.0-51.0); %Monocytes 10.7 % (0.0-10.0); %Neutrophils 64.4 % (42.0-75.0); Mean Corpuscular Hemoglobin 32.2 pg (27.0-31.0); Mean Platelet Volume 7.1 fL (7.4-10.4); Platelet Count 308 thou/uL (130-400); RBC Distribution Width 14.7 % (11.5-14.5); White Blood Cell (WBC) Count 8.3 thou/uL (4.8-10.8)
[2021-12-22] MEDS: Benzonatate 100 MG CAP PO PRN ×3 (05:40→20:10)
[2021-12-22 05:58] LABS: Vancomycin, Random 30.3 ug/mL (See Comment)
[2021-12-22 05:59] LABS: ALT (SGPT) 17 U/L (8-55); AST (SGOT) 24 U/L (5-34); Alkaline Phosphatase 73 U/L (40-110); Anion Gap 14 mmol/L (10-20); BUN (Urea Nitrogen) 32 mg/dL (8.4-25.7); Bilirubin, Total 0.4 mg/dL (0.2-1.2); Calc. Creatinine Clearance 8 mL/min (70-130); Carbon Dioxide 24 mmol/L (23-31); Chloride 101 mmol/L (98-107); Estimated GFR 10; Globulin 3.1 g/dL (2.4-3.5); Glucose 102 mg/dL (83-110); Potassium 3.8 mmol/L (3.5-5.1); Protein, Total 5.1 g/dL (5.8-8.1); Sodium 135 mmol/L (136-145)
[2021-12-22] MEDS: Vancomycin HCl 1 GM in PERIT. DIALYSIS NO.6-1.5 % DEX 2,000 ML IP SCH (09:14)
[2021-12-22] MEDS: Cinacalcet HCl 30 MG TAB PO SCH (09:16)
[2021-12-22] MEDS: Heparin 5,000 UNITS/ML VIAL SC SCH ×3 (09:16→20:10)
[2021-12-22] MEDS: Cefepime 1 GM in Sodium Chloride 0.9% 100 ML IVPB SCH (20:09)
[2021-12-22] MEDS: Mirtazapine 30 MG Soltab PO SCH (20:10)
[2021-12-22] MEDS: Polyethylene Glycol 3350 17 GM Packet PER TUBE SCH (20:11)
[2021-12-23] MEDS: Benzonatate 100 MG CAP PO PRN ×2 (00:03→20:24)
[2021-12-23] MEDS: Lactated Ringer's 1,000 ML IV SCH ×3 (00:03→20:24)
[2021-12-23 05:42] LABS: #Eosinphils 0.6 thou/uL (0.0-0.7); #Lymphocytes 1.4 thou/uL (1.20-3.40); #Monocytes 0.9 thou/uL (0.11-0.59); #Neutrophils 4.7 thou/uL (1.40-6.50); %Basophils 0.4 % (0.0-1.0); %Eosinophils 7.3 % (0.0-10.0); %Lymphocytes 18.8 % (21.0-51.0); %Monocytes 11.3 % (0.0-10.0); %Neutrophils 62.1 % (42.0-75.0); Hemoglobin 8.7 g/dL (14.0-18.0); Mean Corpuscular HGB CONC 31.8 g/dL (32.0-36.0); Mean Corpuscular Hemoglobin 32.9 pg (27.0-31.0); Mean Platelet Volume 6.4 fL (7.4-10.4); Platelet Count 298 thou/uL (130-400); RBC Distribution Width 14.6 % (11.5-14.5); Red Blood Cell (RBC) Count 2.63 mill/uL (4.70-6.10); White Blood Cell (WBC) Count 7.6 thou/uL (4.8-10.8)
[2021-12-23 06:07] LABS: ALT (SGPT) 18 U/L (8-55); AST (SGOT) 24 U/L (5-34); Albumin 1.9 g/dL (3.4-4.8); Alkaline Phosphatase 76 U/L (40-110); Anion Gap 13 mmol/L (10-20); BUN (Urea Nitrogen) 29 mg/dL (8.4-25.7); Bilirubin, Total 0.4 mg/dL (0.2-1.2); Calc. Creatinine Clearance 8 mL/min (70-130); Calcium 11.7 mg/dL (7.8-10.44); Carbon Dioxide 27 mmol/L (23-31); Chloride 99 mmol/L (98-107); Estimated GFR 11; Globulin 3.2 g/dL (2.4-3.5); Glucose 95 mg/dL (83-110); Potassium 3.6 mmol/L (3.5-5.1); Protein, Total 5.1 g/dL (5.8-8.1); Sodium 135 mmol/L (136-145)
[2021-12-23] MEDS: Cinacalcet HCl 30 MG TAB PO SCH (09:51)
[2021-12-23] MEDS: Heparin 5,000 UNITS/ML VIAL SC SCH ×3 (09:56→20:24)
[2021-12-23] MEDS: Vancomycin HCl 1 GM in PERIT. DIALYSIS NO.6-1.5 % DEX 2,000 ML IP SCH (10:04)
[2021-12-23] MEDS: Epoetin (ESRD) 10,000 UNITS/ML VIAL SC SCH (12:07)
[2021-12-23] MEDS ORDERED: Lactated Ringer's 500 ML IV SCH ×2 (19:30→20:30)
[2021-12-23] MEDS: Mirtazapine 30 MG Soltab PO SCH (20:24)
[2021-12-23] MEDS: Cefepime 1 GM in Sodium Chloride 0.9% 100 ML IVPB SCH (20:24)
[2021-12-23] MEDS: Polyethylene Glycol 3350 17 GM Packet PER TUBE SCH (20:48)
[2021-12-24] MEDS: Benzonatate 100 MG CAP PO PRN ×2 (00:28→05:17)
[2021-12-24] MEDS: Lactated Ringer's 1,000 ML IV SCH ×2 (01:00→11:53)
[2021-12-24 05:35] LABS: #Eosinphils 0.6 thou/uL (0.0-0.7); #Lymphocytes 1.3 thou/uL (1.20-3.40); #Monocytes 0.9 thou/uL (0.11-0.59); #Neutrophils 5.4 thou/uL (1.40-6.50); %Basophils 0.4 % (0.0-1.0); %Lymphocytes 15.6 % (21.0-51.0); Hemoglobin 9.2 g/dL (14.0-18.0); Mean Corpuscular HGB CONC 31.5 g/dL (32.0-36.0); Mean Corpuscular Hemoglobin 33.1 pg (27.0-31.0); Mean Platelet Volume 6.9 fL (7.4-10.4); Platelet Count 320 thou/uL (130-400); RBC Distribution Width 14.4 % (11.5-14.5); Red Blood Cell (RBC) Count 2.77 mill/uL (4.70-6.10); White Blood Cell (WBC) Count 8.1 thou/uL (4.8-10.8)
[2021-12-24 06:18] LABS: ALT (SGPT) 14 U/L (8-55); AST (SGOT) 21 U/L (5-34); Albumin 1.9 g/dL (3.4-4.8); Alkaline Phosphatase 77 U/L (40-110); Anion Gap 12 mmol/L (10-20); BUN (Urea Nitrogen) 27 mg/dL (8.4-25.7); Bilirubin, Total 0.4 mg/dL (0.2-1.2); Calc. Creatinine Clearance 8 mL/min (70-130); Calcium 11.6 mg/dL (7.8-10.44); Carbon Dioxide 29 mmol/L (23-31); Chloride 100 mmol/L (98-107); Estimated GFR 11; Globulin 3.1 g/dL (2.4-3.5); Glucose 104 mg/dL (83-110); Potassium 3.7 mmol/L (3.5-5.1); Sodium 137 mmol/L (136-145)
[2021-12-24 09:20] VITALS: BP 127/77; TEMP 97.5
[2021-12-24] MEDS: Heparin 5,000 UNITS/ML VIAL SC SCH ×2 (10:03→15:05)
[2021-12-24] MEDS: Vancomycin HCl 1 GM in PERIT. DIALYSIS NO.6-1.5 % DEX 2,000 ML IP SCH (10:04)
[2021-12-24] MEDS: Cinacalcet HCl 30 MG TAB PO SCH (10:50)
== END 2021-12-24 16:31 | disposition hospice, home (50) | DRG 640 ==
LOC: ERS 13:12 → 2NO 17:34 → MSONC 12-11 14:47
PROVIDERS: ADMIT Hospitalist; ATTEND Hospitalist
PROC: 0DH67UZ Insertion of Feeding Device into Stomach, Via Natural or Artificial Opening (ICD-10-PCS; 2021-12-10)
PROC: 3E0G76Z Introduction of Nutritional Substance into Upper GI, Via Natural or Artificial Opening (ICD-10-PCS; 2021-12-10)
PROC: 4B02XSZ Measurement of Cardiac Pacemaker, External Approach (ICD-10-PCS; 2021-12-11)
PROC: 3E1M39Z Irrigation of Peritoneal Cavity using Dialysate, Percutaneous Approach (ICD-10-PCS; principal; 2021-12-23)
DX: E87.6 Hypokalemia (principal); Z66 Do not resuscitate; Z51.5 Encounter for palliative care; Z20.822 Contact with and (suspected) exposure to COVID-19; E43 Unspecified severe protein-calorie malnutrition; I21.4 Non-ST elevation (NSTEMI) myocardial infarction; N18.6 End stage renal disease; R57.1 Hypovolemic shock; K65.9 Peritonitis, unspecified; J18.9 Pneumonia, unspecified organism; G93.41 Metabolic encephalopathy; I12.0 Hypertensive chronic kidney disease with stage 5 chronic kidney disease or end stage renal disease; Z68.1 Body mass index [BMI] 19.9 or less, adult; R64 Cachexia; Z16.24 Resistance to multiple antibiotics; F05 Delirium due to known physiological condition; E87.1 Hypo-osmolality and hyponatremia; E78.00 Pure hypercholesterolemia, unspecified; F17.220 Nicotine dependence, chewing tobacco, uncomplicated; F03.90 Unspecified dementia, unspecified severity, without behavioral disturbance, psychotic disturbance, mood disturbance, and anxiety; G40.909 Epilepsy, unspecified, not intractable, without status epilepticus; E86.0 Dehydration; M10.9 Gout, unspecified; N40.0 Benign prostatic hyperplasia without lower urinary tract symptoms; E86.9 Volume depletion, unspecified; D63.1 Anemia in chronic kidney disease; R62.7 Adult failure to thrive; E21.2 Other hyperparathyroidism; B95.7 Other staphylococcus as the cause of diseases classified elsewhere; I25.2 Old myocardial infarction; Z90.49 Acquired absence of other specified parts of digestive tract; Z99.2 Dependence on renal dialysis; Z90.5 Acquired absence of kidney; Z85.528 Personal history of other malignant neoplasm of kidney; Z91.09 Other allergy status, other than to drugs and biological substances; Z79.899 Other long term (current) drug therapy; Z79.82 Long term (current) use of aspirin; Z95.1 Presence of aortocoronary bypass graft; Z95.0 Presence of cardiac pacemaker
CPT/HCPCS: 36415; 70450; 71045; 72125; 74018; 74022; 80048; 80053; 80202; 82550; 82553; 83735; 83970; 84100; 84155; 84165; 84484; 85025; 85060; 87070; 87077; 87186; 87205; 89051; 90945; 93005; 93306; 96365; 96366; C9113; G0257; J0692; J0696; J1644; J2405; J3370; J3475; J3480; J3490; J7030; J7050; J7120; P9047; Q4081; U0003; U0005